=== PATIENT | female | born 1935 | race Hispanic/Latino ===

== ENCOUNTER 2016-10-24 10:05 | Inpatient (IN) | payer MEDICARE ==
[2016-10-24 10:21] VITALS: BMI 29.2
--- NOTE | 2016-10-24 10:40 | ED PDOC ---
Arrival/HPI - General Chief Complaint: Shortness Of Breath Time Seen by Provider: 10/24/16 10:25 Historian: Patient - History of Present Illness Narrative History of Present Illness (Text): 10/24/16 10:37 Dang Hopkins is an 81 year old female, whose past medical history includes heart murmur, peripheral vascular disease, who presents to the emergency department complaining of progressively worsening shortness of breath for a few days. Patient states that her symptoms worsen upon exertion. Patient denies any fever, chills, chest pain, nausea, vomiting, diarrhea, urinary symptoms, back pain, neck pain, headache, dizziness, or any other complaints. Denies leg swelling. Denies headache. Reports no back pain. Denies palpitations. Denies bloody urine or stool. PMD: Dr. Rosen Donor Recruiter: Dr. Stevens Time/Duration: < week Symptom Onset: Gradual Symptom Course: Worsening Context: Home Past Medical History - Provider Review Nursing Documentation Reviewed: Yes - Infectious Disease Hx of Infectious Diseases: None - Cardiac Hx Cardiac Disorders: Yes Hx Hypertension: Yes Hx Pacemaker: No Other/Comment: PAD - Pulmonary Hx Respiratory Disorders: No - Neurological Hx Neurological Disorder: No Hx Paralysis: No - HEENT Hx HEENT Disorder: No - Renal Hx Renal Disorder: No - Endocrine/Metabolic Hx Endocrine Disorders: Yes Hx Hypothyroidism: Yes - Hematological/Oncological Hx Blood Disorders: No Hx Blood Transfusions: No - Integumentary Hx Dermatological Disorder: No - Musculoskeletal/Rheumatological Hx Musculoskeletal Disorders: Yes Hx Arthritis: Yes - Gastrointestinal Hx Gastrointestinal Disorders: No - Genitourinary/Gynecological Hx Genitourinary Disorders: No - Psychiatric Hx Psychophysiologic Disorder: No Hx Emotional Abuse: No Hx Physical Abuse: No Hx Substance Use: No - Surgical History Hx Cardiac Catheterization: Yes (no stents) - Anesthesia Hx Anesthesia: Yes Hx Anesthesia Reactions: No Hx Malignant Hyperthermia: No - Suicidal Assessment Feels Threatened In Home Enviroment: No Family/Social History - Physician Review Nursing Documentation Reviewed: Yes Family/Social History: No Known Family HX Smoking Status: Never Smoked Hx Alcohol Use: No Hx Substance Use: No Allergies/Home Meds Allergies/Adverse Reactions: Allergies STRAWBERRY PRESERVE Allergy (Severe, Uncoded 10/24/16 10:20) FACIAL SWELLING Home Medications: Home Meds Medication Instructions Recorded Confirmed Atorvastatin [Lipitor] 10 mg PO DIN 02/09/15 10/24/16 Warfarin [Coumadin] 2.5 mg PO DAILY 02/09/15 10/24/16 amLODIPine [Norvasc] 2.5 mg PO DAILY 02/09/15 10/24/16 Levothyroxine Sodium [Unithroid] 112 mcg PO DAILY 10/24/16 10/24/16 Review of Systems - Review of Systems Constitutional: Fatigue. absent: Fevers, Night Sweats Eyes: absent: Vision Changes, Photophobia ENT: absent: Hearing Changes Respiratory: SOB. absent: Cough, Wheezing Cardiovascular: WILLIS, Orthopnea. absent: Chest Pain, Edema, Calf Pain, Syncope Gastrointestinal: absent: Abdominal Pain, Constipation, Diarrhea, Appetite Changes Genitourinary Female: absent: Dysuria, Frequency, Urine Output Changes Musculoskeletal: absent: Arthralgias, Neck Pain Skin: absent: Rash, Pruritis Neurological: absent: Headache, Dizziness, Focal Weakness Hemo/Lymphatic: absent: Easy Bleeding Physical Exam - Physical Exam Narrative Physical Exam (Text): Head: Atraumatic. Normocephalic. Eyes: PERRL. EOMI. Conjunctivae are not pale. ENT: Mucous membranes are moist and intact. Oropharynx is clear and symmetric. Neck: Supple. Full ROM. No JVD. No lymphadenopathy. Cardiovascular: Harsh systolic murmur. Irregularly irregular. Controlled rate. Pulmonary/Chest: No evidence of respiratory distress. Clear to auscultation bilaterally. No wheezing, rales or rhonchi. Abdominal: Soft and non-distended. There is no tenderness. No rebound, guarding, or rigidity. No organomegaly. Good bowel sounds. Back: No CVA tenderness. Extremities: No pitting edema. No cyanosis. No clubbing. Full range of motion in all extremities. No calf tenderness. Skin: Skin is warm and dry. No petechiae. No purpura. Neurological: Alert, awake, and oriented. Motor and sensory exam intact. Psychiatric: Good eye contact. Normal interaction, affect, and behavior. Vital Signs Reviewed: Yes Vital Signs Temp Pulse Resp BP Pulse Ox 10/24/16 16:37 56 L 16 143/72 100 10/24/16 10:30 98.4 F 73 20 152/68 H 100 10/24/16 10:21 97.5 F L 89 18 94 L Blood Pressure: Normal Pulse: Irregular Respiratory Rate: Normal Appearance: Positive for: Well-Appearing, Non-Toxic, Comfortable Pain Distress: None Mental Status: Positive for: Alert and Oriented X 3 Medical Decision Making ED Course and Treatment: 10/24/16 10:25 Impression: 81 year old female complaining of progressively worsening shortness of breath for a few days Differential Diagnosis included but are not limited to: CHF vs. Aortic Valve Disease vs. CAD vs. COPD Plan: -- EKG -- Chest X-ray -- Urinalysis -- Labs -- Reassess and disposition Progress Notes: Patient noted to have dsypnea with exertion, worsening over past week. On exam, she is comfortable at rest but sob with any exertion. Significant severe heart mumur noted consistent with aortic stenosis. Patient is noted have history of "a valve problem" but patient uncertain specifically current treatment plan. Patient also noted to have atrial fibrillation, this was discussed with patient and family, they are uncertain whether there is prior history of this. INR is elevated, family believes patient is on "blood thinner for circulation problems". Ventricular rate controlled. Case discussed with slope hoist operator Dr. Olea. 10/24/16 11:30 Chest X-ray: Dictator : Marcus Gonzalez MD FINDINGS: LUNGS:No active pulmonary disease. PLEURA:No significant pleural effusion identified, no pneumothorax apparent. CARDIOVASCULAR:Mild cardiomegaly OSSEOUS STRUCTURES:No significant abnormalities. VISUALIZED UPPER ABDOMEN:Normal. OTHER FINDINGS:None. IMPRESSION: No active disease. Will admit to [facility] for PMD's service. Treatment plan reviewed with patient and family. - Lab Interpretations Microbiology Results: Microbiology Results 10/24/16 11:30 Urine,Clean Catch Urine Culture - Final No Growth (<1,000 CFU/ML) Lab Results: 10/24/16 10:30 10/24/16 10:30 Lab Results 10/24/16 11:30: Urine Color Yellow, Urine Appearance Turbid, Urine pH 7.5, Ur Specific [place] 1.010, Urine Protein Negative, Urine Glucose (UA) Negative, Urine Ketones Negative, Urine Blood Trace-intact H, Urine Nitrate Negative, Urine Bilirubin Negative, Urine Urobilinogen 0.2, Ur Leukocyte Esterase Large H , Urine RBC 2 - 5, Urine WBC 0 - 2, Ur Epithelial Cells 0 - 2, Urine Bacteria Few 10/24/16 11:15: PT 23.1 H, INR 2.14 H, APTT 36.0 H 10/24/16 10:30: Sodium 130 L, Potassium 4.3, Chloride 91 L, Carbon Dioxide 32, Anion Gap 11, BUN 11, Creatinine 0.5, Est GFR ( Amer) > 60, Est GFR (Non- Af Amer) > 60, Random Glucose 97, Calcium 9.3, Total Bilirubin 0.8, AST 31, ALT 28, Alkaline Phosphatase 55, Lactate Dehydrogenase 686, Total Creatine Kinase 48 , Troponin I < 0.01, NT-Pro-B Natriuret Pep 951 H, Total Protein 6.9, Albumin 3.8, Globulin 3.0, Albumin/Globulin Ratio 1.3 10/24/16 10:30: WBC 8.7, RBC 4.09, Hgb 11.6 L, Hct 34.5 L, MCV 84.4, MCH 28.4, MCHC 33.6, RDW 13.5, Plt Count 284, MPV 9.6, Gran % 69.1 H, Lymph % (Auto) 14.1 L, [place] % (Auto) 13.4 H, Eos % (Auto) 3.1, Baso % (Auto) 0.3, Gran # 5.97, Lymph # 1.2, [place] # 1.2 H, Eos # 0.3, Baso # 0.03 I have reviewed the lab results: Yes - RAD Interpretation Radiology Orders: 10/24/16 10:36 CHEST PORTABLE [RAD] Stat Manager Forms: Radiologist - EKG Interpretation EKG Interpretation (Text): EKG atrial fibrillation Interpreted by ED Physician: Yes Type: 12 lead EKG - Medication Orders Current Medication Orders: Discontinued Medications Amlodipine Besylate (Norvasc) 2.5 mg PO DAILY [facility] Last Admin: 10/27/16 09:10 Dose: 2.5 mg Atorvastatin Calcium (Lipitor) 10 mg PO DIN [facility] Last Admin: 10/26/16 17:41 Dose: 10 mg Hydrochlorothiazide (Hydrodiuril) 25 mg PO DAILY [facility] Last Admin: 10/26/16 09:00 Dose: 25 mg Iron Sucrose 200 mg/ Sodium (Chloride) 110 mls @ 110 mls/hr IVPB ONCE ONE Stop: 10/25/16 10:59 Last Admin: 10/25/16 10:58 Dose: 110 mls/hr Ceftriaxone Sodium (Rocephin 1 Gram Ivpb) 1 gm in 100 mls @ 100 mls/hr IVPB DAILY [facility] PRN Reason: Protocol Last Admin: 10/26/16 09:01 Dose: 100 mls/hr Levothyroxine Sodium (Synthroid) 112 mcg PO ACB [facility] Last Admin: 10/27/16 08:55 Dose: 112 mcg Losartan Potassium (Cozaar) 100 mg PO DAILY [facility] Last Admin: 10/27/16 09:10 Dose: 100 mg Pneumococcal Polyvalent Vaccine (Pneumovax 23 Vaccine) 0.5 ml IM .ONCE ONE Stop: 10/24/16 20:07 Warfarin Sodium (Coumadin) 2.5 mg PO DAILY [facility] PRN Reason: Protocol Last Admin: 10/27/16 09:11 Dose: 2.5 mg - Scribe Statement The provider has reviewed the documentation as recorded by the Janneth Miller Provider Scribe Attestation: All medical record entries made by the Adarshibtodd were at my direction and personally dictated by me. I have reviewed the chart and agree that the record accurately reflects my personal performance of the history, physical exam, medical decision making, and the department course for this patient. I have also personally directed, reviewed, and agree with the discharge instructions and disposition. Disposition/Present on Arrival - Present on Arrival Any Indicators Present on Arrival: No History of DVT/PE: No History of Uncontrolled Diabetes: No Urinary Catheter: No History of Decub. Ulcer: No History Surgical Site Infection Following: None - Disposition Have Diagnosis and Disposition been Completed?: Yes Diagnosis: Dyspnea on exertion, Atrial fibrillation, Heart murmur Disposition: HOSPITALIZED Disposition Time: 12:25 Patient Plan: Admission, Telemetry Condition: SERIOUS
[2016-10-24 10:53] LABS: BASO # 0.03 K/mm3 (0.0-2.0); BASO % 0.3 % (0.0-3.0); EOS # 0.3 (0.0-0.7); EOS % 3.1 % (1.5-5.0); GRAN # 5.97 (1.4-6.5); GRAN % 69.1 % (50.0-68.0); HEMATOCRIT 34.5 % (36.0-48.0); LYMPH # 1.2 (1.2-3.4); LYMPH % 14.1 % (22.0-35.0); MEAN CELL VOLUME 84.4 fl (80.0-105.0); MEAN CORPUSCULAR HEMOGLOBIN 28.4 pg (25.0-35.0); MEAN CORPUSCULAR HGB CONC 33.6 g/dl (31.0-37.0); MEAN PLATELET VOLUME 9.6 fl (7.0-11.0); MONO # 1.2 (0.1-0.6); MONO % 13.4 % (1.0-6.0); RED CELL DISTRIBUTION WIDTH 13.5 % (11.5-14.5); WHITE BLOOD COUNT 8.7 10^3/ul (4.5-11.0)
[2016-10-24 11:10] LABS: ALB/GLOB RATIO 1.3 (1.1-1.8); ALKALINE PHOSPHATASE 55 U/L (38-126); ALT/SGPT 28 U/L (7-56); AST/SGOT 31 U/L (14-36); BILIRUBIN,TOTAL 0.8 mg/dL (0.2-1.3); BLOOD UREA NITROGEN 11 mg/dL (7-21); CALCIUM 9.3 mg/dL (8.4-10.5); CARBON DIOXIDE 32 mmol/L (21-33); CHLORIDE 91 mmol/L (98-107); GFR AFRICAN-AMERICAN > 60; GLUCOSE,RANDOM 97 mg/dL (70-110); POTASSIUM 4.3 mmol/L (3.6-5.0); SODIUM 130 mmol/L (132-148); TOTAL PROTEIN 6.9 g/dL (5.8-8.3)
[2016-10-24 11:23] LABS: TROPONIN I < 0.01 ng/mL
--- NOTE | 2016-10-24 11:30 | RAD ---
HISTORY: sob COMPARISON: 12/07/2015 FINDINGS: LUNGS: No active pulmonary disease. PLEURA: No significant pleural effusion identified, no pneumothorax apparent. CARDIOVASCULAR: Mild cardiomegaly OSSEOUS STRUCTURES: No significant abnormalities. VISUALIZED UPPER ABDOMEN: Normal. OTHER FINDINGS: None. IMPRESSION: No active disease.
[2016-10-24 11:39] LABS: INR 2.14 (0.93-1.08)
[2016-10-24 11:49] LABS: PH,URINE 7.5 (4.7-8.0); URINE BILIRUBIN NEGATIVE (NEGATIVE); URINE BLOOD TRACE-INTACT (NEGATIVE); URINE GLUCOSE (UA) NEGATIVE (NEGATIVE); URINE KETONE NEGATIVE (NEGATIVE); URINE LEUKOCYTE ESTERASE LARGE Leu/uL (NEGATIVE); URINE PROTEIN NEGATIVE mg/dL (<30 mg/dL); URINE UROBILINOGEN 0.2 E.U./dL (<1 E.U./dL)
[2016-10-24 11:51] LABS: URINE APPEARANCE TURBID (CLEAR); URINE COLOR YELLOW (YELLOW)
[2016-10-24 11:52] LABS: URINE WBC 0 - 2 /hpf (0-6)
[2016-10-24 11:53] LABS: URINE BACTERIA FEW (NEG); URINE EPITHELIAL CELLS 0 - 2 /hpf (0-5)
[2016-10-24] MEDS ORDERED: LEVOTHYROXINE SODIUM 112 MCG PO SCH (17:15)
[2016-10-24] MEDS ORDERED: Non Formulary Medication (Losartan/Hydrochlorothiazide [Hyzaar 100-25 Tablet] 1 TAB) PO SCH (17:15)
[2016-10-24 19:47] LABS: IRON 22 ug/dL (45-180)
[2016-10-24 19:53] LABS: TROPONIN I < 0.01 ng/mL
[2016-10-24] MEDS ORDERED: Pneumococcal 23-Valent Vaccine IM ONE (20:06)
--- NOTE | 2016-10-24 23:23 | CARD ---
APPROVED REPORT EKG Measurement Heart [id number] <Conclusion> Atrial fibrillation Left axis deviation Anteroseptal infarct, age undetermined Abnormal ECG
--- NOTE | 2016-10-25 02:44 | HP ---
DATE OF EVALUATION: 10/24/2016 HISTORY OF PRESENT ILLNESS: Ms. Leong is an 81-year-old female presented to ED with increasing shortness of breath and she has past medical history of cardiac catheterization and coronary artery disease. She denies any chest pain. No chills, no rigors, no nausea, no vomiting, and no abdominal pain. She has hypothyroidism, controlled on current medications. She has osteoarthritis. No active issues. Right now, cardiac catheterization was done in the past. No history of coronary stenting. PAST MEDICAL HISTORY: Osteoarthritis, hypertension, coronary artery disease, hypothyroidism, and osteoarthritis. PAST SURGICAL HISTORY: Cardiac catheterization. FAMILY HISTORY: Noncontributory. PERSONAL HISTORY: Nonsmoker. No history of alcohol abuse. SOCIAL HISTORY: Lives on her own. ALLERGIES: STRAWBERRY. HOME MEDICATIONS: Lipitor 10 mg daily, levothyroxine 112 mcg daily, losartan, hydrochlorothiazide 1 tablet daily, Coumadin 2.5 mg daily, and Norvasc 2.5 mg daily. REVIEW OF SYSTEMS: As per HPI. A 12-point review of systems reviewed and negative. PHYSICAL EXAMINATION GENERAL: Comfortable in bed, in no acute distress. VITAL SIGNS: Temperature 97.5, heart rate 89, respiratory rate 18 per minute, blood pressure 152/68, and oxygen saturation 98% on room air. HEENT: Atraumatic and normocephalic. NECK: Supple. CHEST: Air entry present and equal and bilaterally. No added sounds. CARDIOVASCULAR: S1 and S2 normal. No murmur. No gallop. ABDOMEN: Soft and nontender. No hepatosplenomegaly. EXTREMITIES: No edema. SKIN: Warm and dry. No petechiae. No rash. NEUROLOGIC: Awake, alert and oriented x3. No sensory or motor deficits. PSYCHIATRIC: Normal affect. LABORATORY DATA: Hemoglobin 11.6, hematocrit 35.5, white count 8.7, and glucose 284. Sodium 130, potassium 4.3, BUN 11, creatinine 0.5, and glucose 97. Leukocyte esterase large. ASSESSMENT: 1. Shortness of breath. 2. Coronary artery disease. 3. Hypothyroidism. 4. Anemia. 5. Granulocytosis. 6. Coronary artery disease. PLAN: She will be admitted to hospital. Tele monitoring. We will do serial cardiac enzymes. Cardiac consultation Dr. Stevens requested. We will continue Lipitor 10 mg daily. Continue diuretics and hydrochlorothiazide 25 mg daily. Continue Cozaar 100 mg daily. We will continue anticoagulation with Coumadin 2.5 mg daily. INR is therapeutic 2.14. Continue Norvasc 2.5 mg daily. Anemia workup, B12, folate, and iron studies ordered. Her iron studies show severe iron-deficiency with iron of 22. She will need iron depletion, which can be given IV. BNP is elevated at 951. Echocardiogram ordered. Urine culture ordered and asymptomatic. If urine culture positive, we will start antibiotic and we will hold antibiotics for now. Rosa Goodwin MD
[2016-10-25 07:33] LABS: TROPONIN I 0.01 ng/mL
[2016-10-25] MEDS: Levothyroxine 112 MCG TAB PO SCH (07:54)
--- NOTE | 2016-10-25 12:48 | CON ---
DATE: 10/25/2016 REQUESTING PHYSICIAN: Rosa Goodwin MD REASON FOR CONSULTATION: Dyspnea. HISTORY OF PRESENT ILLNESS: This is an 81-year-old woman known to us with history of chronic atrial fibrillation and aortic stenosis who noticed worsening dyspnea with minimal exertion over the past several weeks. She denies any chest discomfort. On initial admission, she was noted to be in chronic atrial fibrillation with controlled rate. Her last echocardiogram was approximately a year ago. She underwent cardiac catheterization in 2014, at which time, she was found to have minimal coronary artery disease with normal LV systolic function, [id number] aortic stenosis, and wgvaedav-[id number] mitral regurgitation. PAST MEDICAL HISTORY: Notable for hypothyroidism, osteoarthritis, and hypertension. ALLERGIES: SHE HAS NO DRUG ALLERGIES NOTED. MEDICATIONS AT HOME: Include Synthroid 112 mcg daily, Lipitor 10 mg daily, losartan/HCT, Coumadin, and Norvasc 2.5 mg daily. SOCIAL HISTORY: She lives alone. She does not smoke or drink. FAMILY HISTORY: Both parents are from age-related illness. REVIEW OF SYSTEMS: A 10-point review of systems is otherwise unremarkable. PHYSICAL EXAMINATION: GENERAL: She is an elderly woman who appears fairly comfortable at rest. VITAL SIGNS: Blood pressure is 116/60 with a pulse of 60 to 80 and in atrial fibrillation, respirations are 16, and she is afebrile. HEENT: Normocephalic and atraumatic. NECK: Supple. No JVD noted. CHEST: Bilateral scattered rhonchi with no rales heard. HEART: PMI displaced laterally with mid-to-late peaking systolic murmur at the base radiating to the carotids, holosystolic murmur is noted at the apex as well. ABDOMEN: Soft and nontender. Normoactive bowel sounds. EXTREMITIES: No clubbing, cyanosis, or edema. SKIN: Warm and dry. PSYCHIATRIC: Normal mood and affect. NEUROLOGIC: Alert and oriented x3. No gross motor or sensory deficits appreciable. DIAGNOSTIC DATA: White count is 8.7, hemoglobin and hematocrit is 11.6 and 34.5 with a platelet count of 284,000. PT and PTT 23.1 and 36.0. INR is 2.14. Sodium is 130, potassium is 4.3, and BUN and creatinine are 11 and 0.5. Three sets of cardiac enzymes are negative. BNP is 951. Urinalysis is unremarkable. Electrocardiogram reveals atrial fibrillation with left axis deviation and nonspecific ST-T abnormalities. Chest x-ray reveals borderline cardiac silhouette enlargement with clear lung wheeler. IMPRESSION: 1. Worsening exertional dyspnea, suspect this is mainly on the basis of progressive valvular heart disease with worsened aortic stenosis and mitral regurgitation. 2. Mild anemia. 3. History of hypertension. 4. Mild coronary artery disease. RECOMMENDATIONS: Her current medication will be continued for now. An echocardiogram will be ordered and reviewed. Based upon these findings, it may be necessary to initiate evaluation for surgical valve replacement. Thank you for this consultation and we will be happy to follow through her hospital course. Martín Olea MD
[2016-10-25] MEDS: cefTRIAXone 1 gm 1 GM/100 ML BAG IVPB SCH (14:24)
--- NOTE | 2016-10-26 02:04 | PN ---
DATE: 10/25/2016 SUBJECTIVE: She is sitting comfortably in bed, in no acute distress. Complaining of shortness of breath on walking short distances, which is going on progressively increasing for the past few month. Denies any chest pain. No shortness of breath. She also has UA positive. Iron studies were already yesterday showed severe iron deficiency. She has mild anemia. History of coronary artery disease. REVIEW OF SYSTEMS: As per HPI, rest of 12-point systems reviewed negative. PHYSICAL EXAMINATION GENERAL: Comfortable in bed, in no acute distress. VITAL SIGNS: Temperature is 98.7, heart rate 64 per minute, blood pressure 135/61, respiratory rate 18 per minute, and oxygen saturation 98% on room air. HEENT: Pallor positive. No lymphadenopathy. CHEST: S1 and S2 normal. No murmur, no gallop. ABDOMEN: Soft and nontender. No hepatosplenomegaly. EXTREMITIES: No edema. NEUROLOGIC: Alert and oriented x3. No focal sensory or motor deficits. SKIN: No petechiae. No rash. LABORATORY DATA: White count 8.7, hemoglobin 11.6, hematocrit 34.5, and platelet count 284. Sodium 130, potassium 4.3, iron 22, and iron saturation is 7%. Coags, INR 2.1. MEDICATIONS: Amlodipine 2.5 mg daily, Lipitor 10 mg daily, hydrochlorothiazide 25 mg daily, levothyroxine 112 mcg daily, Cozaar 100 mg daily, and Coumadin 2.5 mg daily. ASSESSMENT: 1. Shortness of breath. 2. Coronary artery disease. 3. Anemia. 4. Severe iron deficiency. 5. Urinary tract infection. 6. Coronary artery disease. PLAN: Cardiology evaluation, Dr. Olea is appreciated. Echocardiogram is ordered. She might have aortic stenosis. She has severe iron deficiency anemia need evaluation for that, which can be done as an outpatient. She is UA positive. Urine culture is pending. Ceftriaxone 1 g daily. Rosa Goodwin MD MTDDudley
[2016-10-26 05:55] VITALS: O2SAT 98
--- NOTE | 2016-10-26 08:36 | CP.PCM.PN ---
Subjective - Date & Time of Evaluation Date of Evaluation: 10/26/16 Time of Evaluation: 07:00 - Subjective Subjective: Stable on 2R. Less SOB noted. No CP. V/S noted. AF PE: Lungs: few rhonchi Cor.: irreg. S1S2, GUERA Abd.: benign Ext.: no edema Neuro.: alert I+O= 420/1000 Echo: ordered Objective - Vital Signs/Intake and Output Vital Signs (last 24 hours): Temp Pulse Resp BP Pulse Ox 98.7 F 69 18 136/79 98 10/26/16 05:53 10/26/16 05:53 10/26/16 05:53 10/26/16 05:53 10/26/16 05:53 Intake and Output: 10/26/16 10/26/16 06:59 18:59 Intake Total 120 Output Total 400 Balance -280 - Medications Medications: Current Medications Amlodipine Besylate (Norvasc) 2.5 mg PO DAILY [facility] Last Admin: 10/25/16 10:57 Dose: 2.5 mg Atorvastatin Calcium (Lipitor) 10 mg PO DIN [facility] Last Admin: 10/25/16 17:25 Dose: 10 mg Hydrochlorothiazide (Hydrodiuril) 25 mg PO DAILY [facility] Last Admin: 10/25/16 10:56 Dose: 25 mg Ceftriaxone Sodium (Rocephin 1 Gram Ivpb) 1 gm in 100 mls @ 100 mls/hr IVPB DAILY [facility] PRN Reason: Protocol Last Admin: 10/25/16 14:24 Dose: 100 mls/hr Levothyroxine Sodium (Synthroid) 112 mcg PO ACB [facility] Last Admin: 10/25/16 07:54 Dose: 112 mcg Losartan Potassium (Cozaar) 100 mg PO DAILY [facility] Last Admin: 10/25/16 10:57 Dose: 100 mg Warfarin Sodium (Coumadin) 2.5 mg PO DAILY [facility] PRN Reason: Protocol Last Admin: 10/25/16 10:56 Dose: 2.5 mg - Labs Labs: PT 23.1 Seconds (9.9-11.8) H 10/24/16 11:15 INR 2.14 (0.93-1.08) H 10/24/16 11:15 APTT 36.0 Seconds (23.7-30.8) H 10/24/16 11:15 Assessment and Plan - Assessment and Plan (Free Text) Assessment: WILLIS Chronic AF on warfarin , mild to moderate MR, mod. to severe CAD, mild on cath 2014 HBP Hypothyroidism OA Anemia HLD Plan: Await echo Continue current meds Check BMP and INR in AM OOB as mariella. Probably cath: to be arranged following echo results. As per Dr. Goodwin
[2016-10-26] MEDS: Levothyroxine 112 MCG TAB PO SCH (09:00)
[2016-10-26] MEDS: cefTRIAXone 1 gm 1 GM/100 ML BAG IVPB SCH (09:01)
--- NOTE | 2016-10-26 22:41 | CP.PCM.PN ---
Subjective - Date & Time of Evaluation Date of Evaluation: 10/26/16 Time of Evaluation: 09:00 - Subjective Subjective: DATE: 10/26/2016 SUBJECTIVE: She is sitting comfortably in bed, in no acute distress. Complaining of shortness of breath on walking short distances, which is going on progressively increasing for the past few month. Denies any chest pain. No shortness of breath. She also has UA positive. urine culture negative. History of coronary artery disease. Echocardiogram to be done today. REVIEW OF SYSTEMS: As per HPI, rest of 12-point systems reviewed negative. PHYSICAL EXAMINATION GENERAL: Comfortable in bed, in no acute distress. VITAL SIGNS: reviewed. HEENT: Pallor positive. No lymphadenopathy. CHEST: S1 and S2 normal. No murmur, no gallop. ABDOMEN: Soft and nontender. No hepatosplenomegaly. EXTREMITIES: B/L leg edema -one plus. NEUROLOGIC: Alert and oriented x3. No focal sensory or motor deficits. SKIN: No petechiae. No rash. LABORATORY DATA: reviewed. MEDICATIONS: Amlodipine 2.5 mg daily, Lipitor 10 mg daily, hydrochlorothiazide 25 mg daily, levothyroxine 112 mcg daily, Cozaar 100 mg daily, and Coumadin 2.5 mg daily. ASSESSMENT: 1. Shortness of breath. 2. Coronary artery disease. 3. Anemia. 4. Severe iron deficiency. 5. UA positive, culture negative 6. Coronary artery disease. PLAN: Echo to be done today. Cardiology consult appreciated. decision for cardiac cath after Echo. Urine culture negative - discontinue ceftrioxone. iron deficiency anemia , s/p one dose of IV iron. SOB improved. Continue cardiac meds. INR therapeutic on current coumadin dose, continue same. Rosa Goodwin MD Objective - Vital Signs/Intake and Output Vital Signs (last 24 hours): Temp Pulse Resp BP Pulse Ox 98.3 F 63 20 123/57 L 98 10/26/16 17:48 10/26/16 18:00 10/26/16 17:48 10/26/16 17:48 10/26/16 05:53 - Medications Medications: Current Medications Amlodipine Besylate (Norvasc) 2.5 mg PO DAILY [facility] Last Admin: 10/26/16 09:00 Dose: 2.5 mg Atorvastatin Calcium (Lipitor) 10 mg PO DIN [facility] Last Admin: 10/26/16 17:41 Dose: 10 mg Hydrochlorothiazide (Hydrodiuril) 25 mg PO DAILY [facility] Last Admin: 10/26/16 09:00 Dose: 25 mg Levothyroxine Sodium (Synthroid) 112 mcg PO ACB [facility] Last Admin: 10/26/16 09:00 Dose: 112 mcg Losartan Potassium (Cozaar) 100 mg PO DAILY [facility] Last Admin: 10/26/16 09:00 Dose: 100 mg Warfarin Sodium (Coumadin) 2.5 mg PO DAILY [facility] PRN Reason: Protocol Last Admin: 10/26/16 09:00 Dose: 2.5 mg - Labs Labs: PT 23.1 Seconds (9.9-11.8) H 10/24/16 11:15 INR 2.14 (0.93-1.08) H 10/24/16 11:15 APTT 36.0 Seconds (23.7-30.8) H 10/24/16 11:15
[2016-10-27 06:48] VITALS: RESP 18
[2016-10-27 06:49] LABS: INR 2.44 (0.93-1.08)
[2016-10-27 07:04] LABS: BLOOD UREA NITROGEN 14 mg/dL (7-21); CALCIUM 8.5 mg/dL (8.4-10.5); CARBON DIOXIDE 33 mmol/L (21-33); CHLORIDE 86 mmol/L (98-107); GFR AFRICAN-AMERICAN > 60; GLUCOSE,RANDOM 101 mg/dL (70-110); POTASSIUM 4.2 mmol/L (3.6-5.0); SODIUM 125 mmol/L (132-148)
--- NOTE | 2016-10-27 08:43 | CP.PCM.PN ---
Subjective - Date & Time of Evaluation Date of Evaluation: 10/27/16 Time of Evaluation: 07:00 - Subjective Subjective: Stable on 2R. Less SOB noted. No CP.+ ambulation yesterday V/S noted. AF PE: Lungs: few rhonchi Cor.: irreg. S1S2, GUERA Abd.: benign Ext.: no edema Neuro.: alert I+O= 1200/2400 Labs noted: INR = 2.44, Na+= 125 Echo: See report Objective - Vital Signs/Intake and Output Vital Signs (last 24 hours): Temp Pulse Resp BP Pulse Ox 97.6 F 62 18 151/64 H 98 10/27/16 06:00 10/27/16 06:00 10/27/16 06:00 10/27/16 06:00 10/26/16 05:53 Intake and Output: 10/27/16 10/27/16 06:59 18:59 Intake Total 1200 Output Total 2400 Balance -1200 - Medications Medications: Current Medications Amlodipine Besylate (Norvasc) 2.5 mg PO DAILY [facility] Last Admin: 10/26/16 09:00 Dose: 2.5 mg Atorvastatin Calcium (Lipitor) 10 mg PO DIN [facility] Last Admin: 10/26/16 17:41 Dose: 10 mg Hydrochlorothiazide (Hydrodiuril) 25 mg PO DAILY [facility] Last Admin: 10/26/16 09:00 Dose: 25 mg Levothyroxine Sodium (Synthroid) 112 mcg PO ACB [facility] Last Admin: 10/26/16 09:00 Dose: 112 mcg Losartan Potassium (Cozaar) 100 mg PO DAILY [facility] Last Admin: 10/26/16 09:00 Dose: 100 mg Warfarin Sodium (Coumadin) 2.5 mg PO DAILY [facility] PRN Reason: Protocol Last Admin: 10/26/16 09:00 Dose: 2.5 mg - Labs Labs: 10/27/16 05:50 PT 26.3 Seconds (9.9-11.8) H 10/27/16 05:50 INR 2.44 (0.93-1.08) H 10/27/16 05:50 APTT 36.0 Seconds (23.7-30.8) H 10/24/16 11:15 Assessment and Plan - Assessment and Plan (Free Text) Assessment: WILLIS Hyponatremia Chronic AF on warfarin , severe by current echo Small/medium pericardial effusion on current echo MR, mod. to severe CAD, mild on cath 2014 HBP Hypothyroidism OA Anemia HLD Plan: Hold HCTZ Restrict free water Monitor/correct hyponatremia OOB as mariella. Will arrange cath for next week. Probably as out-pt.
[2016-10-27] MEDS: Levothyroxine 112 MCG TAB PO SCH (08:55)
--- NOTE | 2016-10-27 09:51 | CARD ---
APPROVED REPORT EXAM: Two-dimensional and M-mode echocardiogram with Doppler and color Doppler. Other Information Quality : AverageRhythm : INDICATION Aortic Valve Disease Chest Pain 2D DIMENSIONS Left Atrium (2D)6.0 (1.6-4.0cm)IVSd1.2 (0.7-1.1cm) LVDd4.7 (3.9-5.9cm)LVOT Diameter2.1 (1.8-2.4cm) PWd1.3 (0.7-1.1cm)LVDs3.2 (2.5-4.0cm) FS (%) 31.4 %LVEF (%)59.0 (>50%) M-Mode DIMENSIONS Aortic Root2.60 (2.2-3.7cm)Aortic Cusp Exc.0.80 (1.5-2.0cm) Aortic Valve AoV Peak Qiywvuuu339.0cm/sAoV WZQ975.0cmAO Peak GR.75mmHg LVOT Peak Wkwynwdd53.8cm/sLVOT VTI21.50cmAO Mean GR.48mmHg NOELLE (VMAX)0.96qx6LHR (VTI)0.71cm2 Mitral Valve MV IHF02hwJ/A ratio0.0MVA (PHT)3.01cm2 TDI E/Lateral E'0.0E/Medial E'0.0 Pulmonary Valve PV Peak Fpscrazm13.4cm/sPV Peak Grad.3mmHg Tricuspid Valve TR Peak Ozrdhuta210kl/sRAP [id number] Peak Gr.27mmHg [id number] LEFT VENTRICLE The left ventricle is normal size. There is mild concentric left ventricular hypertrophy. The left ventricular function is normal. The left ventricular ejection fraction is within the normal range. There is normal LV segmental wall motion. RIGHT VENTRICLE The right ventricle is normal size. ATRIA The left atrium is mildly dilated. The right atrium is mildly dilated. The interatrial septum is intact with no evidence for an atrial septal defect. AORTIC VALVE The aortic valve is moderately calcified. There is severe valvular aortic stenosis. MITRAL VALVE The mitral valve is mildly thickened but opens well. Mitral annular calcification is moderate. Mitral regurgitation is moderate. TRICUSPID VALVE The tricuspid valve is normal in structure. There is trace to mild tricuspid regurgitation. PULMONIC VALVE The pulmonic valve is not well visualized. PERICARDIAL EFFUSION There is a small to moderate circumferential pericardial effusion. <Conclusion> The left ventricle is normal size. There is mild concentric left ventricular hypertrophy. The left ventricular function is normal. The aortic valve is moderately calcified. There is severe valvular aortic stenosis. Mitral regurgitation is moderate. There is trace to mild tricuspid regurgitation.
[2016-10-27 11:49] VITALS: BP 126/58; PULSE 60; TEMP 97.9
--- NOTE | 2016-12-07 01:05 | DS ---
DISCHARGE DIAGNOSES: 1. Shortness of breath. 2. Hyponatremia. 3. Anemia. 4. Hypothyroidism. 5. Osteoarthritis. 6. Chronic atrial fibrillation. 7. Aortic stenosis, severe. HOSPITAL COURSE: She was treated conservatively. Cardiology consultation was sought with Dr. Stevens. She was found to have iron deficiency anemia. Her renal condition improved. She was scheduled for cardiac catheterization as an outpatient by Dr. Stevens. PHYSICAL EXAMINATION ON DISCHARGE: GENERAL: Comfortable in bed, in acute distress. VITAL SIGNS: Stable. Temperature is 97.8, heart rate is 82 per minute, respiratory rate is 18 per minute, blood pressure is 150/60 and pulse rate is 98% on room air. HEENT: Normal. NECK: Supple. CHEST: Fair air entry present and equal bilaterally. No added sounds. CARDIOVASCULAR: S1 and S2 normal. No murmur. No gallop. ABDOMEN: Soft and nontender. No hepatosplenomegaly. EXTREMITIES: No edema. SKIN: No petechiae. No rash. MUSCULOSKELETAL: Spine is nontender. CONDITION ON DISCHARGE: Stable. DISPOSITION: Discharged home. DISCHARGE MEDICATIONS: Lipitor 10 mg daily, amlodipine 2.5 mg daily, hydrochlorothiazide 25 mg daily, Synthroid 112 daily, Cozaar 100 mg daily, and Coumadin 2.5 mg daily. All prescriptions were given. DIET: Heart-healthy diet. DISCHARGE FOLLOWUP: With in one week and Dr. Stevens in one week. Time spent in preparing discharge and coordinating care 50 minutes. Rosa Goodwin MD
== END 2016-10-27 17:57 | disposition home or self-care (01) | DRG 307 ==
LOC: ED 10:05 → ERH 12:31 → 2RNO 16:58
PROVIDERS: ADMIT Internal Medicine Medical Oncology; ATTEND Internal Medicine Medical Oncology
DX: I08.0 Rheumatic disorders of both mitral and aortic valves (principal); I31.3 Pericardial effusion (noninflammatory); N39.0 Urinary tract infection, site not specified; E87.1 Hypo-osmolality and hyponatremia; I48.2 Chronic atrial fibrillation; D50.9 Iron deficiency anemia, unspecified; M19.90 Unspecified osteoarthritis, unspecified site; I25.10 Atherosclerotic heart disease of native coronary artery without angina pectoris; I10 Essential (primary) hypertension; E78.5 Hyperlipidemia, unspecified; E03.9 Hypothyroidism, unspecified; R06.09 Other forms of dyspnea; R06.02 Shortness of breath; Z79.01 Long term (current) use of anticoagulants

== ENCOUNTER 2016-11-09 07:39 | Inpatient (IN) | payer MEDICARE ==
[2016-11-09 07:39] VITALS: BMI 29.2
--- NOTE | 2016-11-09 08:07 | ED PDOC ---
Arrival/HPI - General Historian: Patient - History of Present Illness Time/Duration: Other (1 month but worsened 2 days ago) Symptom Onset: Gradual Symptom Course: Worsening <Alessio Velasquez - Last Filed: 11/09/16 15:21> <Mao Case - Last Filed: 11/09/16 18:51> - General Time Seen by Provider: 11/09/16 07:40 - History of Present Illness Narrative History of Present Illness (Text): 11/09/16 08:03 This is an 81 year old female with PMHx severe Aortic Stenosis, A-fib, HTN, HLD , Hypothyroidism who presents complaining of shortness of breath for the past month that worsened 2 days ago. Patient is unable to walk to the bathroom in her home without getting markedly short of breath. Patient also complaining of chest tightness that began this morning. Patient denies fever, chills, cough, abdominal pain, n/v/c/d, dysuria. Of note, patient states that she had cardiac catheterization one year ago and was told that "two of my vessels were thin." Patient states that she has been off of her Coumadin since last Sunday because she was supposed to get a cardiac catheterization on Sunday. Patient states that this was cancelled because her sodium was too low. Patient states that she has not restarted her Coumadin after the cancellation. PMD: Dr. Rosen Electronic Gluer: Dr. Stevens (Alessio Velasquez) Past Medical History - Provider Review Nursing Documentation Reviewed: Yes - Infectious Disease Hx of Infectious Diseases: None - Cardiac Hx Cardiac Disorders: Yes Hx Hypertension: Yes Hx Pacemaker: No Other/Comment: PAD - Pulmonary Hx Respiratory Disorders: No - Neurological Hx Neurological Disorder: No Hx Paralysis: No - HEENT Hx HEENT Disorder: No - Renal Hx Renal Disorder: No - Endocrine/Metabolic Hx Endocrine Disorders: Yes Hx Hypothyroidism: Yes - Hematological/Oncological Hx Blood Disorders: No Hx Blood Transfusions: No - Integumentary Hx Dermatological Disorder: No - Musculoskeletal/Rheumatological Hx Musculoskeletal Disorders: Yes Hx Arthritis: Yes - Gastrointestinal Hx Gastrointestinal Disorders: No - Genitourinary/Gynecological Hx Genitourinary Disorders: No - Psychiatric Hx Psychophysiologic Disorder: No Hx Emotional Abuse: No Hx Physical Abuse: No Hx Substance Use: No - Surgical History Hx Cardiac Catheterization: Yes (no stents) - Anesthesia Hx Anesthesia: Yes Hx Anesthesia Reactions: No Hx Malignant Hyperthermia: No - Suicidal Assessment Feels Threatened In Home Enviroment: No <Alessio Velasquez - Last Filed: 11/09/16 15:21> Family/Social History - Physician Review Nursing Documentation Reviewed: Yes Family/Social History: No Known Family HX Smoking Status: Never Smoked Hx Alcohol Use: No Hx Substance Use: No <Alessio Velasquez - Last Filed: 11/09/16 15:21> Allergies/Home Meds <Alessio Velasquez - Last Filed: 11/09/16 15:21> <Mao Case - Last Filed: 11/09/16 18:51> Allergies/Adverse Reactions: Allergies STRAWBERRY PRESERVE Allergy (Severe, Uncoded 11/09/16 14:51) FACIAL SWELLING Home Medications: Home Meds Medication Instructions Recorded Confirmed Atorvastatin [Lipitor] 10 mg PO DIN 02/09/15 11/09/16 Warfarin [Coumadin] 2.5 mg PO DAILY 02/09/15 11/09/16 amLODIPine [Norvasc] 2.5 mg PO DAILY 02/09/15 11/09/16 Levothyroxine Sodium [Unithroid] 112 mcg PO DAILY 10/24/16 11/09/16 Ascorbic Acid [Vitamin C with Caprice 1,000 mg PO DAILY 11/09/16 11/09/16 Hips] Calcium Carbonate [Calcium] 1,500 mg PO DAILY 11/09/16 11/09/16 Cholecalciferol (Vitamin D3) 1,000 unit PO DAILY 11/09/16 11/09/16 [Vitamin D3] Gluc/Pedro-MSM#1/Vit C/Saulo/Bor 1 tab PO DAILY 11/09/16 11/09/16 [Cvs Uwzegyifslu-Ppzvvp-FST] Multivit-Min/Iron/Folic/Lutein 1 tab PO DAILY 11/09/16 11/09/16 [Centrum Silver Women Tablet] Grand Tower-3 Fatty Acids/Fish Oil 1 cap PO DAILY 11/09/16 11/09/16 [Grand Tower 3 Fish Oil Softgel] Simethicone [Phazyme] 180 mg PO DAILY 11/09/16 11/09/16 Ubidecarenone/Vit E Acet [Co Q-10 1 cap PO DAILY 11/09/16 11/09/16 100 mg Softgel] Vitamin E Acid Succinate [Vitamin 400 unit PO DAILY 11/09/16 11/09/16 E] Review of Systems - Review of Systems Constitutional: Normal. absent: Fevers Eyes: Normal ENT: Normal Respiratory: SOB. absent: Cough Cardiovascular: Other (chest tightness) Gastrointestinal: Normal. absent: Abdominal Pain, Constipation, Diarrhea, Nausea, Vomiting Genitourinary Female: Normal. absent: Dysuria Musculoskeletal: Normal Skin: Normal Neurological: Normal Endocrine: Normal Hemo/Lymphatic: Normal Psychiatric: Normal <Alessio Velasquez S - Last Filed: 11/09/16 15:21> Physical Exam Vital Signs Reviewed: Yes Temperature: Afebrile Blood Pressure: Normal Pulse: Regular Respiratory Rate: Tachypneic Pain Distress: None Mental Status: Positive for: Alert and Oriented X 3 - Systems Exam Head: Present: Atraumatic, Normocephalic Pupils: Present: PERRL Extroacular Muscles: Present: EOMI Conjunctiva: Present: Normal Mouth: Present: Moist Mucous Membranes Neck: Present: Normal Range of Motion Respiratory/Chest: Present: Clear to Auscultation, Good Air Exchange. No: Accessory Muscle Use, Wheezes, Rales, Rhonchi Cardiovascular: Present: Normal S1, S2, Irregular Rhythm. No: Murmurs Abdomen: Present: Normal Bowel Sounds. No: Tenderness, Distention Upper Extremity: Present: Normal Inspection, Other (pulses present). No: Edema Lower Extremity: Present: Normal Inspection, NORMAL PULSES, Other (varicose veins bilateral legs). No: Edema, CALF TENDERNESS Neurological: Present: GCS=15, CN II-XII Intact Skin: Present: Warm, Dry. No: Rashes Psychiatric: Present: Alert, Oriented x 3 <Alessio Velasquez S - Last Filed: 11/09/16 15:21> Vital Signs Temp Pulse Resp BP Pulse Ox 11/09/16 12:57 97.8 F 56 L 18 144/49 L 98 11/09/16 12:03 97.8 F 67 18 137/72 98 11/09/16 08:26 18 96 11/09/16 07:39 97.9 F 72 20 119/51 L 98 Medical Decision Making - Lab Interpretations I have reviewed the lab results: Yes - EKG Interpretation Interpreted by ED Physician: Yes Type: 12 lead EKG <Alessio Velasquez S - Last Filed: 11/09/16 15:21> <Mao Case - Last Filed: 11/09/16 18:51> ED Course and Treatment: 11/09/16 08:26 Impression: This is an 81 year old female with PMHx aortic stenosis, A-fib, HTN , HLD, hypothyroidism complaining of SOB. This dyspnea has been ongoing for 1 month and worsened recently. This morning she is complaining of new onset chest tightness. This is likely cardiac in nature given the fact that her respiratory physical exam was normal. Patient denied a history of COPD but admitted that she was a former smoker 30 years ago. Unable to use PERC criteria due to patient's age. Well's criteria for PE negative. Plan: EKG, Cardiac ISO, BNP, Portable CXR Mag, Phos, Coags D dimer EKG showed A-fib at rate 78 with left axis deviation. Largely unchanged EKG with minor differences from prior EKG. Lead V5 showed flattening of Twaves compared to prior EKG. Leads 1 and V6 has inverted T waves not seen on prior EKG from 10/26/16. Portable CXR: IMPRESSION: Minor bibasilar atelectasis. Markedly elevated D dimer and given the patient's sub-therapeutic INR, decision was made to get a CTA Chest PE protocol. 11/09/16 11:46 CTA PE Protocol: FINDINGS: PULMONARY ARTERIES: Unremarkable. No pulmonary embolism. AORTA: No acute findings. An atherosclerotic but non-aneurysmal thoracic aorta is identified. LUNGS: There are few nodular shaped infiltrates identified at the right upper lobe with 1 or 2 with the left upper lobe as well with the remaining lobes appearing clear. Restrained motion artifact degrades upon this examination somewhat. No central airway lesion. PLEURAL SPACES: There is a mild left pleural effusion. No right pleural effusion. Trace pericardial thickening or effusion is evident with no pneumothorax evident. HEART: Cardiomegaly is noted. LYMPH NODES: Shotty mediastinal lymph nodes are identified. No definite pulmonary venous congestion. BONES, CHEST WALL: Unremarkable. No fracture or destructive lesion OTHER FINDINGS: A small hiatal hernia is encountered. Limited images through the upper abdomen is otherwise unremarkable. IMPRESSION: 1. No definite pulmonary embolus identified bilaterally. 2. Subtle nodular appearing infiltrates are identified at the right greater than left upper lobes. Mild left pleural effusion. No significant lymphadenopathy. Follow-up chest CT is advised following therapy to demonstrate resolution of these findings. Is unclear whether this is an interstitial or alveolar process. 3. Cardiomegaly. Trace pericardial fluid or thickening is identified. Dr. Bravo agreed for inpatient admission. Dr. Olea covering for Dr. Stevens examined the patient and wishes to perform cardiac catheterization tomorrow. (EvaAlessio Casanova) A 81 year old female with shortness of breath. In agreement with resident note, which includes further HPI details. Patient was seen and evaluated with resident , came up with plan and treatment together. Patient CT was negative for PE. Dr. Olea came to evaluate patient and will take her to a cath tomorrow. Dr. Bravo will admit the patient to his service. (Mao Case) - Lab Interpretations Lab Results: 11/09/16 08:16 11/09/16 08:16 Lab Results 11/09/16 08:16: PT 13.4 H, INR 1.24 H, APTT 27.8, D-Dimer, Quantitative 9.24 H 11/09/16 08:16: WBC 7.3, RBC 4.01, Hgb 11.1 L, Hct 33.8 L, MCV 84.3, MCH 27.7, MCHC 32.8, RDW 13.9, Plt Count 370, MPV 8.6, Gran % 68.3 H, Lymph % (Auto) 14.1 L, Armstrong % (Auto) 11.0 H, Eos % (Auto) 6.2 H, Baso % (Auto) 0.4, Gran # 4.97, Lymph # 1.0 L, Armstrong # 0.8 H, Eos # 0.5, Baso # 0.03 11/09/16 08:16: Sodium 132, Potassium 4.3, Chloride 92 L, Carbon Dioxide 32, Anion Gap 12, BUN 13, Creatinine 0.6, Est GFR ( Amer) > 60, Est GFR (Non- Af Amer) > 60, Random Glucose 96, Calcium 9.2, Phosphorus 3.7, Magnesium 1.7, Total Bilirubin 0.5, AST 33, ALT 43, Alkaline Phosphatase 55, Lactate Dehydrogenase 661, Total Creatine Kinase 25 L, Troponin I < 0.01, NT-Pro-B Natriuret Pep 1440 H, Total Protein 6.6, Albumin 3.6, Globulin 3.0, Albumin/ Globulin Ratio 1.2 - RAD Interpretation Radiology Orders: 11/09/16 07:55 CHEST PORTABLE [RAD] Stat 11/09/16 08:52 ANGIO CHEST PE PROTOCOL [CT] Stat - Medication Orders Current Medication Orders: Amlodipine Besylate (Norvasc) 2.5 mg PO DAILY [facility] Atorvastatin Calcium (Lipitor) 10 mg PO DIN [facility] Last Admin: 11/09/16 16:38 Dose: 10 mg Sodium Chloride (Sodium Chloride 0.9%) 1,000 mls @ 40 mls/hr IV .Q24H [facility] Last Admin: 11/09/16 18:01 Dose: 40 mls/hr eMAR Start Stop Document 11/09/16 18:01 MM (Rec: 11/09/16 18:02 MM [id number]) Intravenous Solution Start Date 11/09/16 Start Time 18:02 End Date 11/10/16 End time 18:00 Total Infusion Time 1438 Levothyroxine Sodium (Synthroid) 112 mcg PO ACB [facility] Losartan Potassium (Cozaar) 100 mg PO DAILY [facility] Discontinued Medications Aspirin (Aspirin Chewable) 324 mg PO STAT STA Stop: 11/09/16 10:32 Last Admin: 11/09/16 11:31 Dose: 324 mg Iodixanol (Visipaque 320 Mg/Ml 100 Ml) Confirm Administered Dose 100 ml IV .STK- MED ONE Stop: 11/09/16 09:53 Pneumococcal Polyvalent Vaccine (Pneumovax 23 Vaccine) 0.5 ml IM .ONCE ONE Stop: 11/09/16 16:30 Last Admin: 11/09/16 16:30 Dose: MAR Immunization Data Document 11/09/16 16:30 MM (Rec: 11/09/16 18:03 MM [id number]) Immunization Data Opt out of sending immunization data to No respository? Suppress immunization data to other No providers from registry? Vaccine Eligibility No Vaccine Information Sheet Given No Informed Consent Given No <Alessio Velasquez - Last Filed: 11/09/16 15:21> - PA / CHILD NURSE / Resident Statement /DO has reviewed & agrees with the documentation as recorded. /DO has examined the patient and agrees with the treatment plan. - Scribe Statement The provider has reviewed the documentation as recorded by the Scribe <Mao Case - Last Filed: 11/09/16 18:51> - Scribe Statement Elza Can Provider Scribe Attestation: All medical record entries made by the Scribe were at my direction and personally dictated by me. I have reviewed the chart and agree that the record accurately reflects my personal performance of the history, physical exam, medical decision making, and the department course for this patient. I have also personally directed, reviewed, and agree with the discharge instructions and disposition. (Mao Case) Disposition/Present on Arrival - Present on Arrival Any Indicators Present on Arrival: No History of DVT/PE: No History of Uncontrolled Diabetes: No Urinary Catheter: No History of Decub. Ulcer: No History Surgical Site Infection Following: None - Disposition Have Diagnosis and Disposition been Completed?: Yes Disposition Time: 11:00 <Alessio Velasquez - Last Filed: 11/09/16 15:21> - Disposition Patient Plan: Admission <Mao Case - Last Filed: 11/09/16 18:51> - Disposition Diagnosis: CHF (congestive heart failure), Aortic stenosis Disposition: HOSPITALIZED Patient Problems: Current Active Problems Problem Status Onset Aortic stenosis Acute CHF (congestive heart failure) Acute Condition: FAIR
[2016-11-09 08:21] LABS: BASO # 0.03 K/mm3 (0.0-2.0); BASO % 0.4 % (0.0-3.0); EOS # 0.5 (0.0-0.7); EOS % 6.2 % (1.5-5.0); GRAN # 4.97 (1.4-6.5); GRAN % 68.3 % (50.0-68.0); HEMATOCRIT 33.8 % (36.0-48.0); LYMPH % 14.1 % (22.0-35.0); MEAN CELL VOLUME 84.3 fl (80.0-105.0); MEAN CORPUSCULAR HEMOGLOBIN 27.7 pg (25.0-35.0); MEAN CORPUSCULAR HGB CONC 32.8 g/dl (31.0-37.0); MEAN PLATELET VOLUME 8.6 fl (7.0-11.0); MONO # 0.8 (0.1-0.6); RED CELL DISTRIBUTION WIDTH 13.9 % (11.5-14.5); WHITE BLOOD COUNT 7.3 10^3/ul (4.5-11.0)
--- NOTE | 2016-11-09 08:22 | RAD ---
HISTORY: SOB, chest tightness COMPARISON: No prior. FINDINGS: LUNGS: Suspect minor bibasilar atelectasis. PLEURA: No significant pleural effusion identified, no pneumothorax apparent. CARDIOVASCULAR: Heart size is upper limits of normal/borderline enlarged. OSSEOUS STRUCTURES: No significant abnormalities. VISUALIZED UPPER ABDOMEN: Normal. OTHER FINDINGS: None. IMPRESSION: Minor bibasilar atelectasis.
[2016-11-09 08:30] LABS: INR 1.24 (0.93-1.08); PARTIAL THROMBOPLASTIN TIME 27.8 Seconds (23.7-30.8)
[2016-11-09 08:31] LABS: ALB/GLOB RATIO 1.2 (1.1-1.8); ALKALINE PHOSPHATASE 55 U/L (38-126); ALT/SGPT 43 U/L (7-56); AST/SGOT 33 U/L (14-36); BILIRUBIN,TOTAL 0.5 mg/dL (0.2-1.3); BLOOD UREA NITROGEN 13 mg/dL (7-21); CALCIUM 9.2 mg/dL (8.4-10.5); CARBON DIOXIDE 32 mmol/L (21-33); CHLORIDE 92 mmol/L (98-107); GFR AFRICAN-AMERICAN > 60; GLUCOSE,RANDOM 96 mg/dL (70-110); MAGNESIUM 1.7 mg/dL (1.7-2.2); PHOSPHOROUS 3.7 mg/dL (2.5-4.5); POTASSIUM 4.3 mmol/L (3.6-5.0); SODIUM 132 mmol/L (132-148); TOTAL PROTEIN 6.6 g/dL (5.8-8.3)
[2016-11-09 08:41] LABS: TROPONIN I < 0.01 ng/mL
[2016-11-09 08:51] LABS: D DIMER 9.24 mg/L FEU (0-0.50)
[2016-11-09] MEDS ORDERED: Iodixanol 320 MG/ML 100 ML BOTTLE IV ONE (09:52)
--- NOTE | 2016-11-09 11:23 | CT ---
PROCEDURE: CT Chest with contrast (Pulmonary Angiogram) HISTORY: SOB. Elevated D dimer. Sub-therapeutic INR COMPARISON: None available. TECHNIQUE: Axial computed tomography images were obtained of the chest in the pulmonary arterial phase of enhancement. Coronal and sagittal reformatted images were created and reviewed. Intravenous contrast dose: Visipaque 320, 100 cc Radiation dose: Total exam DLP = 251.27 mGy-cm. This CT exam was performed using one or more of the following dose reduction techniques: Automated exposure control, adjustment of the mA and/or kV according to patient size, and/or use of iterative reconstruction technique. FINDINGS: PULMONARY ARTERIES: Unremarkable. No pulmonary embolism. AORTA: No acute findings. An atherosclerotic but non-aneurysmal thoracic aorta is identified. LUNGS: There are few nodular shaped infiltrates identified at the right upper lobe with 1 or 2 with the left upper lobe as well with the remaining lobes appearing clear. Restrained motion artifact degrades upon this examination somewhat. No central airway lesion. PLEURAL SPACES: There is a mild left pleural effusion. No right pleural effusion. Trace pericardial thickening or effusion is evident with no pneumothorax evident. HEART: Cardiomegaly is noted. LYMPH NODES: Shotty mediastinal lymph nodes are identified. No definite pulmonary venous congestion. BONES, CHEST WALL: Unremarkable. No fracture or destructive lesion OTHER FINDINGS: A small hiatal hernia is encountered. Limited images through the upper abdomen is otherwise unremarkable. IMPRESSION: 1. No definite pulmonary embolus identified bilaterally. 2. Subtle nodular appearing infiltrates are identified at the right greater than left upper lobes. Mild left pleural effusion. No significant lymphadenopathy. Follow-up chest CT is advised following therapy to demonstrate resolution of these findings. Is unclear whether this is an interstitial or alveolar process. 3. Cardiomegaly. Trace pericardial fluid or thickening is identified.
--- NOTE | 2016-11-09 14:11 | CON ---
REQUESTING PHYSICIAN: Dr. Bravo. REASON FOR CONSULTATION: Dyspnea. HISTORY OF PRESENT ILLNESS: This is an 81-year-old woman, known to us from prior admission. She was recently admitted with worsening dyspnea and found to have worsened aortic stenosis and mitral regurgitation. Plans were being made for cardiac catheterization; however, she developed severed hyponatremia. She has had worsening dyspnea, presented to the emergency room earlier today. Her D-dimer was somewhat elevated and she was sent for CT angiogram of the chest which was negative for a pulmonary embolus. Her sodium this morning has improved at 132. PAST MEDICAL HISTORY: Notable for hypothyroidism, osteoporosis and hypertension. MEDICATIONS AT HOME: Include Lipitor, losartan, HCTZ, Coumadin, Norvasc and Synthroid. ALLERGIES: NONE. SOCIAL HISTORY: She does not smoke or drink. FAMILY HISTORY: Both parents are from age-related illness. REVIEW OF SYSTEMS: A 10-point review of systems is otherwise unremarkable. PHYSICAL EXAMINATION: GENERAL: She is an elderly woman who appears comfortable at the present time. VITAL SIGNS: Her blood pressure is 146/50 with pulse 56 and respirations are 16. She is afebrile. NECK: No JVD. Carotid upstrokes are diminished and delayed. CHEST: Reveals bibasilar rales. HEART: PMI is displaced laterally with a late peaking systolic murmur at the base radiating to the carotids. Systolic murmurs present in the apex as well. ABDOMEN: Soft and nontender. Normoactive bowel sounds. EXTREMITIES: Mild venous varicosity is noted. No edema is present. SKIN: Warm and dry. PSYCHIATRIC: Normal mood and affect. NEUROLOGIC: Alert and oriented x3. No gross motor or sensory deficits appreciable. DIAGNOSTIC DATA: White count 7.3, hemoglobin and hematocrit 11.1 and 33.8 with a platelet count of 370,000. PT and PTT 13.4 and 27.8. Potassium 4.3, BUN and creatinine are 13 and 0.6. CK is negative as is the troponin. BNP is 1440. Sodium this morning was 132. Chest x-ray reveals an increased cardiac silhouette with bibasilar atelectasis and increased vascular markings. Electrocardiogram reveals atrial fibrillation with left axis deviation, prior anteroseptal myocardial infarction apparently cannot be excluded and nonspecific ST-T abnormalities are noted. IMPRESSION: 1. Severe aortic stenosis. 2. Recent hyponatremia, clinically improved. 3. Chronic atrial fibrillation, anticoagulation currently on hold in anticipation of planned cardiac catheterization. 4. Rest of the problems as noted. RECOMMENDATIONS: The patient will be admitted to telemetry. Cardiac catheterization will be planned tomorrow. If she has no worsening of her coronary artery disease, plans will be made for possible transcutaneous aortic valve replacement. If she has had progressive coronary artery disease, either transcutaneous valve replacement with PCI or surgical valve replacement with bypass surgery will be recommended. Her diuretic therapy will be withheld given her recent profound hyponatremia. Thank you for this consultation. We will be happy to follow and make further recommendations as appropriate. Martín Olea MD
[2016-11-09] MEDS ORDERED: Pneumococcal 23-Valent Vaccine IM ONE (16:29)
[2016-11-09] MEDS: Sodium Chloride 0.9% 1,000 ML IV SCH (18:01)
--- NOTE | 2016-11-09 18:55 | CARD ---
APPROVED REPORT EKG Measurement Heart [id number] <Conclusion> Atrial fibrillation Left axis deviation Anteroseptal infarct, age undetermined T wave abnormality, consider lateral ischemia or digitalis effect Abnormal ECG
[2016-11-10 06:48] LABS: BLOOD UREA NITROGEN 12 mg/dL (7-21); CALCIUM 8.9 mg/dL (8.4-10.5); CARBON DIOXIDE 36 mmol/L (21-33); CHLORIDE 94 mmol/L (98-107); GFR AFRICAN-AMERICAN > 60; GLUCOSE,RANDOM 94 mg/dL (70-110); POTASSIUM 4.7 mmol/L (3.6-5.0); SODIUM 136 mmol/L (132-148)
[2016-11-10] MEDS ORDERED: Levothyroxine 112 MCG TAB PO SCH (07:30)
[2016-11-10] MEDS ORDERED: Lidocaine 2% Inj (20ml) ONE (15:02)
[2016-11-10] MEDS ORDERED: Phenylephrine 10 mg/ml Inj ONE (15:04)
[2016-11-10] MEDS ORDERED: Iohexol 350mgl/ml 50 ML ONE (15:05)
[2016-11-10] MEDS ORDERED: Midazolam 2 MG/2 ML VIAL ONE (15:34)
[2016-11-10] MEDS: Sodium Chloride 0.9% 1,000 ML IV SCH (16:50)
--- NOTE | 2016-11-10 19:56 | PN ---
DATE: 11/10/2016 SUBJECTIVE: The patient seen and lying in bed on telemetry. She is comfortable at the present time. She denies any dyspnea or rest. CURRENT MEDICATIONS: Include Cozaar 100 mg daily, Lipitor 10 mg daily, Norvasc 2.5 mg daily, and Synthroid 112 mcg daily. OBJECTIVE: GENERAL: She is an elderly woman who is comfortable at rest. VITAL SIGNS: Blood pressure is 116/50 with pulse of 60 in atrial fibrillation, respirations 14. She is afebrile. HEENT: No JVD. CHEST: Few scattered rhonchi heard. HEART: PMI displaced laterally with systolic murmur, which is late-peaking noted at the base radiating to the carotids. ABDOMEN: Soft and nontender. Normoactive bowel sounds. EXTREMITIES: No edema. DIAGNOSTIC DATA: Sodium is 136, potassium is 4.7, and BUN and creatinine are 12 and 0.6. IMPRESSION: 1. Progressive exertional dyspnea with evidence of worsening aortic stenosis. 2. Recent hyponatremia currently improved. PLAN: The patient will undergo cardiac catheterization to exclude significant heart disease and reassessed her valvular heart disease. Further recommendations are based on these results. Martín Olea MD
--- NOTE | 2016-11-10 22:39 | CP.PCM.PN ---
Subjective - Date & Time of Evaluation Date of Evaluation: 11/10/16 Time of Evaluation: 22:38 - Subjective Subjective: runs of vtach, 9 beats. S/P cardiac cath today. See my next note. Objective - Vital Signs/Intake and Output Vital Signs (last 24 hours): Temp Pulse Resp BP Pulse Ox 97.3 F L 61 18 157/82 H 98 11/10/16 19:05 11/10/16 20:35 11/10/16 20:35 11/10/16 20:35 11/09/16 12:57 - Medications Medications: Current Medications Amlodipine Besylate (Norvasc) 2.5 mg PO DAILY [facility] Last Admin: 11/10/16 10:12 Dose: 2.5 mg Atorvastatin Calcium (Lipitor) 10 mg PO DIN [facility] Last Admin: 11/10/16 19:29 Dose: 10 mg Sodium Chloride (Sodium Chloride 0.9%) 1,000 mls @ 40 mls/hr IV .Q24H GREG Last Admin: 11/10/16 16:50 Dose: 40 mls/hr Levothyroxine Sodium (Synthroid) 112 mcg PO ACB GREG Last Admin: 11/10/16 10:12 Dose: 112 mcg Losartan Potassium (Cozaar) 100 mg PO DAILY [facility] Last Admin: 11/10/16 10:12 Dose: 100 mg Warfarin Sodium (Coumadin) 10 mg PO 1800 [facility] PRN Reason: Protocol Last Admin: 11/10/16 19:33 Dose: Not Given - Labs Labs: 11/10/16 06:10 PT 13.4 Seconds (9.9-11.8) H 11/09/16 08:16 INR 1.24 (0.93-1.08) H 11/09/16 08:16 APTT 27.8 Seconds (23.7-30.8) 11/09/16 08:16
--- NOTE | 2016-11-10 22:51 | CP.PCM.PN ---
Subjective - Date & Time of Evaluation Date of Evaluation: 11/10/16 Time of Evaluation: 22:46 - Subjective Subjective: Patient was seen at bedside. Because she has had 9 beats of runs of VTACH. She has no complaints now. She is S/P cardiac cath by today. Can not retrieve the cardiac cath report at this time. Patient states that she was told after cath by that she would have to go to [facility] for procedure, she has blockage in heart vesse. She has no chest pain, sob, nausea ,sweating , palpitations now. Medical record was reviewed. This 81 year old white woman was admitted with increasing shortness of breath. Has PMH of CAD, HTN, OA, hypothyroidism,cardiac catheterization. Objective - Vital Signs/Intake and Output Vital Signs (last 24 hours): Temp Pulse Resp BP Pulse Ox 97.3 F L 61 18 157/82 H 98 11/10/16 19:05 11/10/16 20:35 11/10/16 20:35 11/10/16 20:35 11/09/16 12:57 - Medications Medications: Current Medications Amlodipine Besylate (Norvasc) 2.5 mg PO DAILY [facility] Last Admin: 11/10/16 10:12 Dose: 2.5 mg Atorvastatin Calcium (Lipitor) 10 mg PO DIN [facility] Last Admin: 11/10/16 19:29 Dose: 10 mg Sodium Chloride (Sodium Chloride 0.9%) 1,000 mls @ 40 mls/hr IV .Q24H GREG Last Admin: 11/10/16 16:50 Dose: 40 mls/hr Levothyroxine Sodium (Synthroid) 112 mcg PO ACB [facility] Last Admin: 11/10/16 10:12 Dose: 112 mcg Losartan Potassium (Cozaar) 100 mg PO DAILY [facility] Last Admin: 11/10/16 10:12 Dose: 100 mg Warfarin Sodium (Coumadin) 10 mg PO 1800 [facility] PRN Reason: Protocol Last Admin: 11/10/16 19:33 Dose: Not Given - Labs Labs: 11/10/16 06:10 PT 13.4 Seconds (9.9-11.8) H 11/09/16 08:16 INR 1.24 (0.93-1.08) H 11/09/16 08:16 APTT 27.8 Seconds (23.7-30.8) 11/09/16 08:16 - Constitutional Appears: Well, No Acute Distress - Head Exam Head Exam: ATRAUMATIC, NORMAL INSPECTION, NORMOCEPHALIC - Eye Exam Eye Exam: Normal appearance - ENT Exam ENT Exam: Normal External Ear Exam - Neck Exam Neck Exam: Normal Inspection - Respiratory Exam Respiratory Exam: NORMAL BREATHING PATTERN - Cardiovascular Exam Cardiovascular Exam: absent: JVD - GI/Abdominal Exam GI & Abdominal Exam: absent: Distended - Rectal Exam Rectal Exam: Deferred - Exam Additional comments: Deferred. - Extremities Exam Extremities Exam: Normal Inspection - Back Exam Back Exam: NORMAL INSPECTION - Neurological Exam Neurological Exam: Alert, Oriented x3 - Psychiatric Exam Psychiatric exam: Normal Mood - Skin Skin Exam: Normal Color Assessment and Plan - Assessment and Plan (Free Text) Assessment: S/P cardiac cath. Coronary blockage. Non sustained vtach. HTN. Hypothyroidism, OA. CAD. Plan: EKG.----> Atrial fibrillation. No acute ST T changes present. BMP. Magnesium . Phosphorous. Troponin. Continue present management. Will speak to business programmer prn.
[2016-11-10 23:02] LABS: BLOOD UREA NITROGEN 11 mg/dL (7-21); CALCIUM 8.9 mg/dL (8.4-10.5); CARBON DIOXIDE 32 mmol/L (21-33); GFR AFRICAN-AMERICAN > 60; GLUCOSE,RANDOM 163 mg/dL (70-110); MAGNESIUM 1.8 mg/dL (1.7-2.2); PHOSPHOROUS 3.4 mg/dL (2.5-4.5); POTASSIUM 4.1 mmol/L (3.6-5.0); SODIUM 131 mmol/L (132-148)
[2016-11-10 23:05] LABS: CHLORIDE 90 mmol/L (98-107)
[2016-11-10 23:13] LABS: TROPONIN I < 0.01 ng/mL
--- NOTE | 2016-11-11 01:52 | CP.PCM.HP ---
History of Present Illness - History of Present Illness History of Present Illness: Pt. is a 81 year old female admitted with progressive increase in shortness of breath. She has h/o A-Fib, severe aortic stenosis. She is off coumadin for cardiac cath. CT chest showed bilateral pulmonary nodules. No chest pain. cardiac enzymes not elevated. Present on Admission - Present on Admission Any Indicators Present on Admission: No Review of Systems - Constitutional Constitutional: Fatigue, Weakness - EENT Eyes: absent: As Per HPI, Blind Spots, Blurred Vision, Change in Vision, Decreased Night Vision, Diplopia, Discharge, Dry Eye, Exophthalmos, Floaters, Irritation, Itchy Eyes, Loss of Peripheral Vision, Pain, Photophobia, Requires Corrective Lenses, Sees Flashes, Spots in Vision, Tunnel Vision, Other Visual Disturbances, Loss of Vision, Other Ears: absent: As Per HPI, Decreased Hearing, Ear Discharge, Ear Pain, Tinnitus, Abnormal Hearing, Disequilibrium, Dizziness, Other Nose/Mouth/Throat: absent: As Per HPI, Epistaxis, Nasal Congestion, Nasal Discharge, Nasal Obstruction, Nasal Trauma, Nose Pain, Post Nasal Drip, Sinus Pain, Sinus Pressure, Bleeding Gums, Change in Voice, Dental Pain, Dry Mouth, Dysphagia, Halitosis, Hoarsness, Lip Swelling, Mouth Lesions, Mouth Pain, Odynophagia, Sore Throat, Throat Swelling, Tongue Swelling, Facial Pain, Neck Pain, Neck Mass, Other - Breasts Breasts: absent: As Per HPI, Change in Shape, Mass, Pain, Nipple Discharge, Nipple Inversion, Skin Changes, Swelling, Other - Cardiovascular Cardiovascular: Dyspnea - Respiratory Respiratory: Dyspnea, Dyspnea on Exertion - Genitourinary Genitourinary: absent: As Per HPI, Change in Urinary Stream, Difficulty Urinating, Dysuria, Flank Pain, Hematuria, Pyuria, Nocturia, Urinary Incontinence, Urinary Frequency, Urinary Hesitance, Urinary Urgency, Voiding Freq/Small Amts, Freq UTI, Hx Renal/Bladder Calculi, Hx /Renal Surgery, Bladder Distension, Other - Reproductive: Female Reproductive:Female: absent: As Per HPI, Amenorrhea, Amenorrhea/ Control, Currently Menstual, Cycle <21 Days, Cycle >35 Days, Cycle Variable, Menses 1-7 Days, Menses >/= 8 Days, Menses Variable, Cycle > 4 Weeks Between, No Menses for 6 Months, Heavy Menses, Light Menses, Normal Menses, Spotting Between Cycles , S/P Hysterectomy, Menopausal, Post Menopausal, Premenarche, Abnormal Vaginal Bleeding, Dysmenorrhea, Dyspareunia, Genital Lesions, Genital Pruritis, Pelvic Pain, Prolapse Symptoms, Sexual Dysfunction, Vaginal Discharge, Vaginal Dryness , Vaginal Odor, Vaginal Pruritis, Other - Musculoskeletal Musculoskeletal: absent: As Per HPI, Abnormal Gait, Arthralgias, Atrophy, Back Pain, Deformity, Joint Swelling, Limited Range of Motion, Loss of Height, Muscle Cramps, Muscle Weakness, Myalgias, Neck Pain, Numbness, Radiating Pain into Limb, Stiffness, Tingling, Other - Integumentary Integumentary: absent: As Per HPI, Acne, Alopecia, Bleeding Lesions, Change in Hair, Change in Nails, Change in Pigmentation, Changing Lesions, Dry Skin, Erythema, Furuncle, Hirsutism, Lesions, New Lesions, Non-Healing Lesions, Photosensitivity, Pruritus, Rash, Skin Pain, Skin Ulcer, Sores, Striae, Swelling , Unusual Bruising, Wounds, Jaundice, Other - Neurological Neurological: absent: As Per HPI, Abnormal Gait, Abnormal Hearing, Abnormal Movements, Abnormal Speech, Behavioral Changes, Burning Sensations, Confusion, Convulsions, Disequilibrium, Dizziness, Numbness, Focal Weakness, Frequent Falls , Headaches, Lack of Coordination, Loss of Vision, Memory Loss, Paresthesias, Radicular Pain, Restless Legs, Sensory Deficit, Syncope, Tingling, Tremor, Vertigo, Weakness, Other Visual Disturbances, Other - Psychiatric Psychiatric: absent: As Per HPI, Abnormal Sleep Pattern, Anhedonia, Anxiety, Auditory Hallucinations, Behavioral Changes, Change in Appetite, Change in Libido, Confusion, Depression, Difficulty Concentrating, Hallucinations, Homicidal Ideation, Hopelessness, Irritability, Memory Loss, Mood Swings, Panic Attacks, Paranoia, Suicidal Ideation, Visual Hallucinations, Tactile Hallucinations, Other - Endocrine Endocrine: As Per HPI - Hematologic/Lymphatic Hematologic: As Per HPI Past Patient History - Infectious Disease Hx of Infectious Diseases: None - Past Medical History & Family History Past Medical History?: No Past Family History: Reviewed and not pertinent - Past Social History Smoking Status: Former Smoker - CARDIAC Hx Cardiac Disorders: Yes Hx Circulatory Problems: Yes Hx Congestive Heart Failure: Yes Hx Hypercholesterolemia: Yes Hx Hypertension: Yes Hx Pacemaker: No Other/Comment: PAD - PULMONARY Hx Respiratory Disorders: No - NEUROLOGICAL Hx Neurological Disorder: No - HEENT Hx HEENT Problems: Yes (WEARS RX GLASSES) Hx Deafness: Yes ([place] WITH HEARING AIDE) - RENAL Hx Chronic Kidney Disease: No - ENDOCRINE/METABOLIC Hx Endocrine Disorders: Yes Hx Hypothyroidism: Yes - HEMATOLOGICAL/ONCOLOGICAL Hx Blood Disorders: No - INTEGUMENTARY Hx Dermatological Problems: No Other/Comment: PAD-HAS VARICOSITIES TO BILATERAL LE - MUSCULOSKELETAL/RHEUMATOLOGICAL Hx Musculoskeletal Disorders: Yes Hx Arthritis: Yes Hx Falls: Yes Hx Fractures: Yes (ANKLE SX WITH BOLTS AND SCREWS,BROKEN ARM FROM FALL) - GASTROINTESTINAL Hx Gastrointestinal Disorders: No - GENITOURINARY/GYNECOLOGICAL Hx Genitourinary Disorders: Yes Other/Comment: "FLOATING UTERUS"HAS URGENCY - PSYCHIATRIC Hx Psychophysiologic Disorder: No Hx Emotional Abuse: No Hx Physical Abuse: No Hx Substance Use: No - SURGICAL HISTORY Hx Surgeries: Yes Hx Cardiac Catheterization: Yes (no stents) Other/Comment: right knee arthroscopic sx, left ankle sx has screw, nut, bolt - ANESTHESIA Hx Anesthesia: Yes Hx Anesthesia Reactions: No Hx Malignant Hyperthermia: No Meds Allergies/Adverse Reactions: Allergies Allergy/AdvReac Type Severity Reaction Status Date / Time STRAWBERRY PRESERVE Allergy Severe FACIAL Uncoded 11/09/16 14:51 SWELLING Physical Exam - Constitutional Appears: In Acute Distress - Head Exam Head Exam: ATRAUMATIC, NORMAL INSPECTION, NORMOCEPHALIC - Eye Exam Eye Exam: Normal appearance Pupil Exam: NORMAL ACCOMODATION - ENT Exam ENT Exam: Mucous Membranes Moist, Normal Exam - Neck Exam Neck exam: Positive for: Normal Inspection - Respiratory Exam Respiratory Exam: Clear to Auscultation Bilateral, NORMAL BREATHING PATTERN - Cardiovascular Exam Cardiovascular Exam: Irregular Rhythm, +S1, +S2 - GI/Abdominal Exam GI & Abdominal Exam: Normal Bowel Sounds, Soft - Extremities Exam Extremities exam: Positive for: normal inspection - Back Exam Back exam: NORMAL INSPECTION - Neurological Exam Neurological exam: CN II-XII Intact, Normal Gait, Oriented x3 - Psychiatric Exam Psychiatric exam: Normal Affect - Skin Skin Exam: Normal Color, Warm Results - Vital Signs Recent Vital Signs: Last Vital Signs Temp 97.3 F L 11/10/16 19:05 Pulse 65 11/10/16 22:35 Resp 20 11/10/16 22:35 BP 113/74 11/10/16 22:35 Pulse Ox 98 11/09/16 12:57 - Labs Result Diagrams: 11/09/16 08:16 11/10/16 22:46 Labs: Laboratory Results - last 24 hr 11/10/16 11/10/16 06:10 22:46 Sodium 136 131 L Potassium 4.7 4.1 Chloride 94 L 90 L Carbon Dioxide 36 H 32 Anion Gap 11 13 BUN 12 11 Creatinine 0.6 0.7 Est GFR ( Amer) > 60 > 60 Est GFR (Non-Af Amer) > 60 > 60 Random Glucose 94 163 H Calcium 8.9 8.9 Phosphorus 3.4 Magnesium 1.8 Troponin I < 0.01 Assessment & Plan - Assessment and Plan (Free Text) Assessment: 1. CHF 2. Severe Aortic stenosis 3. B/L lung nodules 4. Anemia 5. A-Fib Plan : 1. admit tele monitoring. Cardiac cath will be done today. She has severe aortic stenosis. Cradiac consult Dr. Stevens requested. Note reviewed. Synthyroid 112 mcgm daily. Cozar 100 mg daily. Hold coumadin for procedure . coags normal. Mild anemia. Hb/Hct stable. Renal : BUN, lytes normal. - Date & Time Date: 11/10/16 Time: 10:00
--- NOTE | 2016-11-11 02:24 | CARDCATH ---
PROCEDURE DATE: 11/10/2016 PROCEDURES: 1. Selective left and right coronary angiography. 2. Right and left heart catheterization. 3. Right femoral arteriography. 4. Angio-Seal deployment. HISTORY: This is an 81-year-old woman with worsening exertional dyspnea and evidence of progressive aortic stenosis noted on echocardiography. Cardiac catheterization was advised. INDICATION: 1. Aortic stenosis. 2. Exertional dyspnea. FINDINGS: HEMODYNAMICS: The right heart pressures were as follows: The RA mean pressure was 10, RV pressure was 56/10 with a PA pressure of 54/16. The pulmonary capillary wedge pressure was 14. The cardiac output by thermodilution method was 3.4 liters per minute with cardiac index of 2.0 L/min/m2. The aortic valve gradient on catheter pullback was 13 mmHg. The calculated aortic valve area based upon the modified Gorlin formula was 0.6 cm2. CORONARY ANATOMY. 1. The left mainstem was normal. 2. The left anterior ascending artery and its branches had mild irregularities. 3. The left circumflex artery and its branches had mild irregularities. 4. The right coronary artery was large, dominant and normal. LEFT VENTRICULOGRAPHY: A hand injection was performed in the left ventricle revealing normal wall motion. This was performed in the DOYLE projection. Overall ejection fraction was 70%. RIGHT FEMORAL ARTERIOGRAPHY: A right femoral arteriogram was performed in the DOYLE projection. This revealed no evidence of significant disease and appropriate level of arterial punch. The puncture site was then closed with deployment of an Angio-Seal device. CONCLUSION: 1. Severe aortic stenosis. 2. Minimal coronary artery disease. 3. Normal left ventricular systolic function. 4. Mildly elevated right heart pressures. RECOMMENDATIONS: Given above findings, consideration will be given to aortic valve replacement provided that surgical approach or transcutaneous approach. Outpatient followup will be arranged to proceed with this assessment. Martín Olea MD MTDD
[2016-11-11 06:38] VITALS: RESP 18; TEMP 98.7; O2SAT 95
[2016-11-11 07:42] LABS: INR 1.18 (0.93-1.08)
[2016-11-11 08:03] LABS: BLOOD UREA NITROGEN 13 mg/dL (7-21); CALCIUM 8.9 mg/dL (8.4-10.5); CARBON DIOXIDE 32 mmol/L (21-33); CHLORIDE 92 mmol/L (98-107); GFR AFRICAN-AMERICAN > 60; GLUCOSE,RANDOM 86 mg/dL (70-110); POTASSIUM 4.1 mmol/L (3.6-5.0); SODIUM 132 mmol/L (132-148)
--- NOTE | 2016-11-11 10:15 | PN ---
DATE: 11/11/2016 SUBJECTIVE: The patient was seen, lying in bed on telemetry. She is comfortable at the present time. She refused Coumadin last evening. CURRENT MEDICATIONS: Include Cozaar 100 mg daily, Lipitor 10 mg daily, Norvasc 2.5 mg daily, and Synthroid 112 mcg daily. OBJECTIVE: GENERAL: She is a very elderly woman who is comfortable at the present time. VITAL SIGNS: Blood pressure is 116/66 with a pulse of 66 in atrial fibrillation, respirations are 16. She is afebrile. HEENT: No JVD. CHEST: Bilateral scattered rhonchi. HEART: PMI displaced laterally with a systolic murmur present at the base radiating to the carotids. ABDOMEN: Soft and nontender. Normoactive bowel sounds. EXTREMITIES: No edema. SKIN: Warm and dry. Right coronary chest, no evidence of hematoma. DIAGNOSTIC DATA: Sodium is 132, potassium 4.1; BUN and creatinine are 13 and 0.6. IMPRESSION: 1. Severe aortic stenosis. 2. Normal left ventricular function. 3. Chronic atrial fibrillation. RECOMMENDATIONS: From a cardiac standpoint, she is stable for discharge home today. She will be seen in the office on Sunday and arrangements made for surgical evaluation for aortic valve replacement either surgically or through transcatheter approach. Coumadin will be resumed in the interim. Pending that evaluation. Martín Olea MD
[2016-11-11 10:17] VITALS: BP 126/67
[2016-11-11 13:14] VITALS: PULSE 66
--- NOTE | 2016-11-11 19:33 | CARD ---
APPROVED REPORT EKG Measurement Heart [id number] <Conclusion> Atrial fibrillation Left axis deviation Inferior infarct, age undetermined Anteroseptal infarct, age undetermined ST & T wave abnormality, consider lateral ischemia or digitalis effect Abnormal ECG
--- NOTE | 2016-11-12 01:58 | DS ---
DATE: 11/11/2016 SUBJECTIVE: The patient has no complaints of any chest pain. No shortness of breath. No headaches. She had a cardiac cath yesterday with no stents that were placed. She was cleared to be discharged home by Dr. Olea. She has no complaints of any headaches or dizziness. PHYSICAL EXAMINATION: VITAL SIGNS: Temperature is 98.7, pulse of 67, blood pressure 117/66, respirations 18. GENERAL: The patient is lying in bed, flat, comfortable. HEENT: No oral lesion. Anicteric sclerae. Moist mucosa. NECK: No JVD, adenopathy, or thyromegaly. CARDIOVASCULAR: S1 and S2, regular. No murmurs, rubs, or gallops. LUNGS: Clear to auscultation bilaterally. No wheeze, rales, or rhonchi. ABDOMEN: Bowel sounds are positive, soft, nontender and nondistended. EXTREMITIES: No cyanosis, clubbing or edema. LABORATORY DATA: Creatinine 0.6. ASSESSMENT: 1. Aortic stenosis. 2. Bilateral lung nodules. 3. Anemia. 4. Atrial fibrillation. 5. Hypothyroidism. 6. Congestive heart failure secondary to diastolic dysfunction, stable, resolved. PLAN: The patient is currently comfortable. She is on amlodipine for hypertension. She had been on IV fluids, this is discontinued. She is going to follow with Dr. Olea on Sunday. The patient is on Coumadin, this will be continued. She is on Lipitor for her dyslipidemia. She is on Synthroid for her hypothyroidism. Jaun Bravo MD
== END 2016-11-11 14:02 | disposition home or self-care (01) | DRG 287 ==
LOC: ED 07:39 → ERH 11:39 → 2RNO 13:08
PROVIDERS: ADMIT Internal Medicine Nephrology; ATTEND Internal Medicine Nephrology
PROC: 4A023N8 Measurement of Cardiac Sampling and Pressure, Bilateral, Percutaneous Approach (ICD-10-PCS; principal; 2016-11-10)
PROC: B2111ZZ Fluoroscopy of Multiple Coronary Arteries using Low Osmolar Contrast (ICD-10-PCS; 2016-11-10)
PROC: B2161ZZ Fluoroscopy of Right and Left Heart using Low Osmolar Contrast (ICD-10-PCS; 2016-11-10)
DX: I08.0 Rheumatic disorders of both mitral and aortic valves (principal); I47.2 Ventricular tachycardia; I50.30 Unspecified diastolic (congestive) heart failure; I48.2 Chronic atrial fibrillation; I11.0 Hypertensive heart disease with heart failure; E87.1 Hypo-osmolality and hyponatremia; J98.11 Atelectasis; D64.9 Anemia, unspecified; R91.8 Other nonspecific abnormal finding of lung field; E03.9 Hypothyroidism, unspecified; E78.00 Pure hypercholesterolemia, unspecified; E78.5 Hyperlipidemia, unspecified; H91.90 Unspecified hearing loss, unspecified ear; I25.10 Atherosclerotic heart disease of native coronary artery without angina pectoris; M81.0 Age-related osteoporosis without current pathological fracture; Z79.01 Long term (current) use of anticoagulants; Z79.899 Other long term (current) drug therapy; Z87.891 Personal history of nicotine dependence; M19.90 Unspecified osteoarthritis, unspecified site; Z91.018 Allergy to other foods; R40.2412 Glasgow coma scale score 13-15, at arrival to emergency department; J44.9 Chronic obstructive pulmonary disease, unspecified; K44.9 Diaphragmatic hernia without obstruction or gangrene

== ENCOUNTER 2017-01-14 15:09 | Emergency (ER) | payer MEDICARE ==
[2017-01-14 15:09] VITALS: BMI 29.2
[2017-01-14 15:22] VITALS: TEMP 98
--- NOTE | 2017-01-14 16:09 | ED PDOC ---
Arrival/HPI - General Historian: Patient, Family - History of Present Illness Time/Duration: 24 hours Symptom Onset: Sudden Symptom Course: Unchanged Quality: Aching Severity Level: 8 Activities at Onset: Rest, Light Context: Walking, Home <Arnaldo Gutierrez - Last Filed: 01/14/17 20:18> <Wilson Kaur DO - Last Filed: 01/14/17 21:53> - General Chief Complaint: Lower Extremity Problem/Injury - History of Present Illness Narrative History of Present Illness (Text): 01/14/17 15:59 Mrs. Hopkins is an 82 year old female with a past medical history significant for severe aortic stenosis, atrial fibrillation, HTN, HLD, hypothyroidism and PVD who presents to the [facility] with a chief complaint of right foot/ankle pain that started this morning. Patients daughter at bedside. Patient reports that when she woke up this morning, she had a nonradiating, aching sharp pain in her right foot with associated minimal swelling. She states that she tried to use both heat and cold to relieve the pain with no relief. She endorses that yesterday her and her daughter walked around "quite a bit" and patient reports no trauma or foot pain at that time. Of note, patient ambulates without assistance at home and today she reports having to use a cane. She denies fever, chills, headache, chest pain, SOB, abdominal pain, N/V/D /C, or any burning with urination. (Arnaldo Gutierrez) Past Medical History - Provider Review Nursing Documentation Reviewed: Yes - Travel History Have you recently traveled outside [place] w/in the past 3 mons?: Yes - Past History Past History: Non-Contributing - Infectious Disease Hx of Infectious Diseases: None - Reproductive Menopause: Yes - Cardiac Hx Cardiac Disorders: Yes Hx Circulatory Problems: Yes Hx Congestive Heart Failure: Yes Hx Hypertension: Yes Other/Comment: PAD - Pulmonary Hx Respiratory Disorders: No - Neurological Hx Neurological Disorder: No - HEENT Hx HEENT Disorder: Yes (WEARS RX GLASSES) Hx Deafness: Yes (HOOPA WITH HEARING AIDE) - Renal Hx Renal Disorder: No - Endocrine/Metabolic Hx Endocrine Disorders: Yes Hx Hypothyroidism: Yes - Hematological/Oncological Hx Blood Disorders: No - Integumentary Hx Dermatological Disorder: No Other/Comment: PAD-HAS VARICOSITIES TO BILATERAL LE - Musculoskeletal/Rheumatological Hx Musculoskeletal Disorders: Yes Hx Arthritis: Yes Hx Falls: Yes Hx Fractures: Yes (ANKLE SX WITH BOLTS AND SCREWS,BROKEN ARM FROM FALL) - Gastrointestinal Hx Gastrointestinal Disorders: No - Genitourinary/Gynecological Hx Genitourinary Disorders: Yes Other/Comment: "FLOATING UTERUS"HAS URGENCY - Psychiatric Hx Psychophysiologic Disorder: No Hx Emotional Abuse: No Hx Physical Abuse: No Hx Substance Use: No - Surgical History Hx Cardiac Catheterization: Yes (no stents) Other/Comment: right knee arthroscopic sx, left ankle sx has screw, nut, bolt. aortic valve replacement 2016 - Anesthesia Hx Anesthesia: Yes Hx Anesthesia Reactions: No Hx Malignant Hyperthermia: No - Suicidal Assessment Feels Threatened In Home Enviroment: No <Arnaldo Gutierrez - Last Filed: 01/14/17 20:18> Family/Social History - Physician Review Nursing Documentation Reviewed: Yes Family/Social History: No Known Family HX Smoking Status: Former Smoker Hx Alcohol Use: No Hx Substance Use: No <Arnaldo Gutierrez - Last Filed: 01/14/17 20:18> Allergies/Home Meds <Arnaldo Gutierrez - Last Filed: 01/14/17 20:18> <Wilson Kaur DO - Last Filed: 01/14/17 21:53> Allergies/Adverse Reactions: Allergies STRAWBERRY PRESERVE Allergy (Severe, Uncoded 11/09/16 14:51) FACIAL SWELLING Home Medications: Home Meds Medication Instructions Recorded Confirmed Atorvastatin [Lipitor] 10 mg PO DIN 02/09/15 01/14/17 Warfarin [Coumadin] 5 mg PO DAILY 02/09/15 01/14/17 amLODIPine [Norvasc] 2.5 mg PO DAILY 02/09/15 01/14/17 Levothyroxine Sodium [Unithroid] 112 mcg PO DAILY 10/24/16 01/14/17 Ascorbic Acid [Vitamin C with Caprice 1,000 mg PO DAILY 11/09/16 01/14/17 Hips] Calcium Carbonate [Calcium] 1,500 mg PO DAILY 11/09/16 01/14/17 Cholecalciferol (Vitamin D3) 1,000 unit PO DAILY 11/09/16 01/14/17 [Vitamin D3] Gluc/Pedro-MSM#1/Vit C/Saulo/Bor 1 tab PO DAILY 11/09/16 01/14/17 [Cvs Ytnjuerkfvd-Syeyig-PSJ] Multivit-Min/Iron/Folic/Lutein 1 tab PO DAILY 11/09/16 01/14/17 [Centrum Silver Women Tablet] Carpio-3 Fatty Acids/Fish Oil 1 cap PO DAILY 11/09/16 01/14/17 [Carpio 3 Fish Oil Softgel] Simethicone [Phazyme] 180 mg PO DAILY 11/09/16 01/14/17 Aspirin [Ecotrin] 81 mg PO DAILY 01/14/17 01/14/17 Review of Systems - Physician Review All systems were reviewed & negative as marked: Yes - Review of Systems Constitutional: Normal. absent: Fevers, Night Sweats Eyes: Normal. absent: Vision Changes ENT: Normal Respiratory: Normal. absent: SOB, Cough Cardiovascular: Normal. absent: Chest Pain, Palpitations Gastrointestinal: Normal. absent: Abdominal Pain, Constipation, Diarrhea, Nausea, Vomiting Genitourinary Female: Normal. absent: Dysuria, Frequency Musculoskeletal: Arthralgias (Right ankle), Joint Swelling (Right ankle). absent: Normal, Back Pain, Neck Pain, Myalgias Skin: Normal. absent: Rash Neurological: Gait Changes (Difficulty with ambulation due to pain). absent: Normal, Headache, Dizziness Endocrine: Normal Hemo/Lymphatic: Normal Psychiatric: Normal <Arnaldo Gutierrez - Last Filed: 01/14/17 20:18> Physical Exam Vital Signs Reviewed: Yes Temperature: Afebrile Blood Pressure: Normal Pulse: Regular Respiratory Rate: Normal Appearance: Positive for: Well-Appearing, Non-Toxic, Comfortable Pain Distress: None Mental Status: Positive for: Alert and Oriented X 3 - Systems Exam Head: Present: Atraumatic, Normocephalic Pupils: Present: PERRL Extroacular Muscles: Present: EOMI Conjunctiva: Present: Normal Mouth: Present: Moist Mucous Membranes Neck: Present: Normal Range of Motion Respiratory/Chest: Present: Clear to Auscultation, Good Air Exchange. No: Respiratory Distress, Accessory Muscle Use Cardiovascular: Present: Regular Rate and Rhythm, Normal S1, S2. No: Murmurs Abdomen: Present: Normal Bowel Sounds. No: Tenderness, Distention, Peritoneal Signs Back: Present: Normal Inspection Upper Extremity: Present: Normal Inspection. No: Cyanosis, Edema Lower Extremity: Present: Edema (Right ankle posterior to lateral malleolus ), NORMAL PULSES, Normal ROM, Tenderness (Right ankle and dorsal aspect of right foot), Neurovascularly Intact, Capillary Refill < 2 s. No: Normal Inspection, CALF TENDERNESS, Cyanosis, Miranda's Sign, Erythema, Deformity, Temperature Abnormalties Neurological: Present: GCS=15, CN II-XII Intact, Speech Normal Skin: Present: Warm, Dry, Normal Color. No: Rashes Lymphatic: No: Cervical Adenopathy Psychiatric: Present: Alert, Oriented x 3, Normal Insight, Normal Concentration <Arnaldo Gutierrez - Last Filed: 01/14/17 20:18> Vital Signs Temp Pulse Resp BP Pulse Ox 01/14/17 17:09 98 F 61 19 134/48 L 97 01/14/17 15:09 98 F 84 18 148/71 96 Medical Decision Making - RAD Interpretation Motocross Racer: ED Physician, Radiologist <Arnaldo Gutierrez - Last Filed: 01/14/17 20:18> <Wilson Kaur DO - Last Filed: 01/14/17 21:53> ED Course and Treatment: 01/14/17 16:21 Impression: 82 year old female with a past medical history significant for severe aortic stenosis, atrial fibrillation, HTN, HLD, hypothyroidism and PVD who presents to the [facility] with a chief complaint of right foot/ankle pain that started this morning Plan: -Tylenol 650mg STAT -Right ankle 3-view -Reassess and disposition Prior Visits: 10/2016: Patient seen and evaluated for CHF exacerbation (Arnaldo Gutierrez) Patient Seen With Resident: In agreement with resident note which contains more details about the patient. Patient was seen and evaluated with resident. Came up with plan and treatment together. (Wilson Kaur DO) - RAD Interpretation Radiology Orders: 01/14/17 15:49 ANKLE RIGHT 3 VIEWS ROUTINE [RAD] Stat - Medication Orders Current Medication Orders: Discontinued Medications Acetaminophen (Tylenol 325mg Tab) 650 mg PO STAT STA Stop: 01/14/17 15:50 Last Admin: 01/14/17 16:01 Dose: 650 mg MAR Pain/Vitals Document 01/14/17 16:01 LA (Rec: 01/14/17 16:02 [place] [id number]) Pain Reassessment Is This A Pain ReAssessment? No Sleep Is patient sleeping during reassessment? No Presence of Pain Presence of Pain Yes Pain Scale Used Pain Scale Used Numeric Location Left, Right or Bilateral Right Pain Location Body Site Foot Description Constant Intensity 9 Scale Used Numeric - PA / EDGER FEEDER / Resident Statement / has reviewed & agrees with the documentation as recorded. / has examined the patient and agrees with the treatment plan. <Wilson Kaur DO - Last Filed: 01/14/17 21:53> Disposition/Present on Arrival - Present on Arrival Any Indicators Present on Arrival: No History of DVT/PE: No History of Uncontrolled Diabetes: No Urinary Catheter: No History of Decub. Ulcer: No History Surgical Site Infection Following: None - Disposition Have Diagnosis and Disposition been Completed?: Yes Disposition Time: 17:15 Patient Plan: Discharge <Arnaldo Gutierrez - Last Filed: 01/14/17 20:18> - Disposition Disposition Time: 16:40 <Wilson Kaur DO - Last Filed: 01/14/17 21:53> - Disposition Diagnosis: Right ankle pain Disposition: HOME/ ROUTINE Condition: GOOD Discharge Instructions (ExitCare): Swollen Ankle Joint (ED) Additional Instructions: Cash Sandeep, thank you for letting us take care of you today. Your provider was Dr. Kaur. You were treated for right ankle pain. The emergency medical care you received today was directed at your acute symptoms. If you were prescribed any medication, please fill it and take as directed. It may take several days for your symptoms to resolve. Return to the Emergency Department if your symptoms worsen, do not improve, or if you have any other problems. Please contact your doctor or call one of the physicians/clinics you have been referred to that are listed on the Patient Visit Information form that is included in your discharge packet. Bring any paperwork you were given at discharge with you along with any medications you are taking to your follow up visit. Our treatment cannot replace ongoing medical care by a primary care provider (PCP) outside of the emergency department. PLEASE FOLLOW UP WITH YOUR PRIMARY CARE DOCTOR WITHIN ONE TO TWO WEEKS Thank you for allowing the [employer] [facility] [employer] team to be part of your care today. If you had an X-Ray or CT scan: A Radiologist will review the ED reading if any change in treatment is needed we will contact you. Referrals: [email or web address] Kacey Req, [Primary Care Provider] - Follow up with primary Forms: [employer] (Bengali)
--- NOTE | 2017-01-14 17:05 | RAD ---
PROCEDURE: Right Ankle Radiographs. HISTORY: Right ankle/foot pain COMPARISON: None FINDINGS: BONES: Normal. No fracture. JOINTS: Normal. No osteoarthritis. Ankle mortise maintained. Talar dome intact SOFT TISSUES: Normal. OTHER FINDINGS: None. IMPRESSION: Normal right ankle radiographs.
[2017-01-14 17:23] VITALS: BP 134/48; PULSE 61; RESP 19; O2SAT 97
== END 2017-01-14 17:28 | disposition home or self-care (01) ==
LOC: ED 15:09
DX: M25.571 Pain in right ankle and joints of right foot (principal); E03.9 Hypothyroidism, unspecified; E78.5 Hyperlipidemia, unspecified; I48.91 Unspecified atrial fibrillation; I50.9 Heart failure, unspecified; I10 Essential (primary) hypertension; Z87.891 Personal history of nicotine dependence; Z79.01 Long term (current) use of anticoagulants

== ENCOUNTER 2018-07-04 09:28 | Outpatient (CLI) | payer MEDICARE | END 2018-07-04 09:29 | disposition home or self-care (01) | LOC: CARDIO 09:28 ==